=== PATIENT | male | born 1995 | race Caucasian/White ===

== ENCOUNTER 2023-01-19 18:29 | Emergency (ER) | payer OTHER, SELFPAY ==
--- NOTE | ~2023-01-19 | XR_ITS ---
EXAMINATION: XR CHEST CLINICAL INFORMATION: Lightheaded, dizziness. COMPARISON: None available. TECHNIQUE: 2 views of the chest were obtained. FINDINGS: No significant cardiomediastinal contour abnormality. No focal airspace opacity, pleural effusion or pneumothorax. No displaced rib fractures. The visualized upper abdomen is within normal limits. XR/XR chest 2V IMPRESSION: No acute cardiopulmonary findings.
[2023-01-19 18:44] VITALS: BP 164/50; PULSE 86; RESP 18; TEMP 36; O2SAT 98; BMI 26.9
--- NOTE | 2023-01-19 18:44 | ED.GENADULT ---
HPI - General Adult General Chief complaint: Recheck/Abnormal Lab/Rx <ASHLEY Urrutia - Last Filed: 01/19/23 18:45> Stated complaint: sent from urgent care/ dizzy, faint, hot <ASHLEY Urrutia - Last Filed: 01/19/23 18:45> Time Seen by Provider: 01/20/23 02:05 <ASHLEY Urrutia - Last Filed: 01/19/23 18:45> Source: patient <Rafael Ferraro MD - Last Filed: 01/20/23 03:04> Mode of arrival: ambulatory <Rafael Ferraro MD - Last Filed: 01/20/23 03:04> Limitations: no limitations <Rafael Ferraro MD - Last Filed: 01/20/23 03:04> History of Present Illness HPI narrative: Patient came with him with nonspecific dizziness not feeling good was outside in 92 decrease in hot humid seen in urgent care noted ? Abnormal T-wave EKG and sent patient HERE denies any chest palpitation patient otherwise has no cardiac issues in the past no syncope or palpitation <Rafael Ferraro MD - Last Filed: 01/20/23 03:04> Related Data Allergies/adverse reactions: Allergies Allergy/AdvReac Type Severity Reaction Status Date / Time Penicillins [PCN] Allergy Rash Verified 01/19/23 18:46 <ASHLEY Urrutia - Last Filed: 01/19/23 18:45> Review of Systems Review of Systems: Yes all other systems are reviewed and are negative <Rafael Ferraro MD - Last Filed: 01/20/23 03:04> [facility] Social History Social History: Social History Advance Directives: No Advance Directives Information Provided: No <ASHLEY Urrutia - Last Filed: 01/19/23 18:45> Physical Exam ED Vital Signs: Vital Signs - 24 hr 01/19/23 18:44 01/19/23 23:59 Temperature 96.8 F 98 F Pulse Rate 86 70 Respiratory Rate 18 20 Blood Pressure 164/50 H 138/69 Pulse Oximetry 98 98 Oxygen Delivery Method Room Air Room Air BMI result Body Mass Index 26.9 <ASHLEY Urrutia - Last Filed: 01/19/23 18:45> Vital Signs - 24 hr 01/19/23 18:44 01/19/23 23:59 Temperature 96.8 F 98 F Pulse Rate 86 70 Respiratory Rate 18 20 Blood Pressure 164/50 H 138/69 Pulse Oximetry 98 98 Oxygen Delivery Method Room Air Room Air BMI result Body Mass Index 26.9 <Rafael Ferraro MD - Last Filed: 01/20/23 03:04> Appearance: Alert. Oriented X3. No acute distress. Eyes: PERRLA, No Nystagmus ENT: Pharynx normal. Oral Mucosa moist Neck: Normal inspection. Neck supple. CVS: Normal heart rate and rhythm. Pulses normal. No murmur Respiratory: No respiratory distress. Equal air entry bilateral, no wheezing/rales/rhonchi Abdomen: Soft and nontender. Bowel sounds are present, no mass palpable, no CVA tenderness Skin: Skin warm and dry. Normal skin color. Normal skin turgor. Extremities: No lower extremity edema. No calf tenderness Neuro: Oriented X 3. No motor deficit. No sensory deficit.No cerebellar signs , cranial nerves II-XII intact <Rafael Ferraro MD - Last Filed: 01/20/23 03:04> Course Course Course Narrative: RME performed by Stephanie De Jesus PA-C. Patient is a 27 year old assigned male at presenting to the emergency department feeling lightheaded and overall warm. Patient states that he was seen at an urgent care and had a decreased blood glucose and possible abnormal EKG. Labs and swabs ordered. Patient placed back in the waiting room pending room availability and results. <ASHLEY Urrutia - Last Filed: 01/19/23 18:45> Medical Decision Making Medical Decision Making [facility] Narrative: Patient's symptoms likely from heat exhaustion vitals are stable workup negative discharge patient home <Rafael Ferraro MD - Last Filed: 01/20/23 03:04> Lab Data [facility] Lab Attestation statement: I reviewed the patient's lab results. <Rafael Ferraro MD - Last Filed: 01/20/23 03:04> Result Diagrams: 01/19/23 18:57 01/19/23 19:52 <ASHLEY Urrutia - Last Filed: 01/19/23 18:45> Labs: Lab Results 01/19/23 01/19/23 01/19/23 Range/Units 18:57 18:57 18:57 WBC 7.4 (4.8-10.8) X10*3/uL RBC 5.32 (4.60-5.80) X10*6/uL Hgb 15.3 (14.0-18.0) g/dl Hct 44.5 (42.0-52.0) % MCV 83.6 (80.0-98.0) fL MCH 28.8 (27.0-33.0) pg MCHC 34.4 (31.0-36.0) g/dl RDW 11.9 (11.0-16.0) % Plt Count 275 (160-400) X10*3/uL MPV 9.8 (9.4-12.4) fL Immature Gran % (Auto) 0.4 (0.0-0.4) % Neut % (Auto) 62.6 (45-73) % Lymph % (Auto) 25.4 (20-40) % [place] % (Auto) 6.9 (2-11) % Eos % (Auto) 4.3 H (0-4) % Baso % (Auto) 0.4 (0-2) % Lymph # (Auto) 1.9 (1.2-4.9) X10*3/uL [place] # (Auto) 0.5 (0.1-1.2) X10*3/uL Eos # (Auto) 0.3 (0.0-0.4) X10*3/uL Baso # (Auto) 0.0 (0.0-0.2) X10*3/uL Abs Immat Gran (auto) 0.03 (0.00-0.03) X10*3/uL Absolute Neuts (auto) 4.7 (2.0-8.3) x10*3/uL Absolute Nucleated RBC 0.000 (0.0-0.012) X10*3/uL Nucleated RBC % (auto) 0.0 (0.0-0.2) /100WBC Sodium (135-145) mmol/L Potassium (3.3-5.1) mmol/L Chloride (96-108) mmol/L Carbon Dioxide (22-29) mmol/L Anion Gap (12-20) BUN (9-16) mg/dL Creatinine (0.5-1.4) mg/dL Estim Creat Clear Calc Estimated GFR Random Glucose (60-115) mg/dL Calcium (8.4-10.2) mg/dL Magnesium (1.6-2.6) mg/dL Total Bilirubin (0.0-1.0) mg/dL AST (5-37) U/L ALT (0-40) U/L Alkaline Phosphatase (39-117) U/L Troponin I High Sens < 2.7 (<3.5-35.0) ng/L Total Protein (6.5-8.0) g/dL Albumin (3.5-5.0) g/dL COVID-19 (KETAN) Negative (Negative) COVID-19 Clin Com See Note 01/19/23 Range/Units 19:52 WBC (4.8-10.8) X10*3/uL RBC (4.60-5.80) X10*6/uL Hgb (14.0-18.0) g/dl Hct (42.0-52.0) % MCV (80.0-98.0) fL MCH (27.0-33.0) pg MCHC (31.0-36.0) g/dl RDW (11.0-16.0) % Plt Count (160-400) X10*3/uL MPV (9.4-12.4) fL Immature Gran % (Auto) (0.0-0.4) % Neut % (Auto) (45-73) % Lymph % (Auto) (20-40) % [place] % (Auto) (2-11) % Eos % (Auto) (0-4) % Baso % (Auto) (0-2) % Lymph # (Auto) (1.2-4.9) X10*3/uL [place] # (Auto) (0.1-1.2) X10*3/uL Eos # (Auto) (0.0-0.4) X10*3/uL Baso # (Auto) (0.0-0.2) X10*3/uL Abs Immat Gran (auto) (0.00-0.03) X10*3/uL Absolute Neuts (auto) (2.0-8.3) x10*3/uL Absolute Nucleated RBC (0.0-0.012) X10*3/uL Nucleated RBC % (auto) (0.0-0.2) /100WBC Sodium 142 (135-145) mmol/L Potassium 4.0 (3.3-5.1) mmol/L Chloride 106 (96-108) mmol/L Carbon Dioxide 27 (22-29) mmol/L Anion Gap 13 (12-20) BUN 12 (9-16) mg/dL Creatinine 0.88 (0.5-1.4) mg/dL Estim Creat Clear Calc 118.9 Estimated GFR > 60 Random Glucose 93 (60-115) mg/dL Calcium 9.6 (8.4-10.2) mg/dL Magnesium 2.2 (1.6-2.6) mg/dL Total Bilirubin 0.3 (0.0-1.0) mg/dL AST 18 (5-37) U/L ALT 21 (0-40) U/L Alkaline Phosphatase 100 (39-117) U/L Troponin I High Sens (<3.5-35.0) ng/L Total Protein 7.8 (6.5-8.0) g/dL Albumin 4.7 (3.5-5.0) g/dL COVID-19 (KETAN) (Negative) COVID-19 Clin Com <ASHLEY Urrutia - Last Filed: 01/19/23 18:45> Lab Results 01/19/23 01/19/23 01/19/23 Range/Units 18:57 18:57 18:57 WBC 7.4 (4.8-10.8) X10*3/uL RBC 5.32 (4.60-5.80) X10*6/uL Hgb 15.3 (14.0-18.0) g/dl Hct 44.5 (42.0-52.0) % MCV 83.6 (80.0-98.0) fL MCH 28.8 (27.0-33.0) pg MCHC 34.4 (31.0-36.0) g/dl RDW 11.9 (11.0-16.0) % Plt Count 275 (160-400) X10*3/uL MPV 9.8 (9.4-12.4) fL Immature Gran % (Auto) 0.4 (0.0-0.4) % Neut % (Auto) 62.6 (45-73) % Lymph % (Auto) 25.4 (20-40) % [place] % (Auto) 6.9 (2-11) % Eos % (Auto) 4.3 H (0-4) % Baso % (Auto) 0.4 (0-2) % Lymph # (Auto) 1.9 (1.2-4.9) X10*3/uL [place] # (Auto) 0.5 (0.1-1.2) X10*3/uL Eos # (Auto) 0.3 (0.0-0.4) X10*3/uL Baso # (Auto) 0.0 (0.0-0.2) X10*3/uL Abs Immat Gran (auto) 0.03 (0.00-0.03) X10*3/uL Absolute Neuts (auto) 4.7 (2.0-8.3) x10*3/uL Absolute Nucleated RBC 0.000 (0.0-0.012) X10*3/uL Nucleated RBC % (auto) 0.0 (0.0-0.2) /100WBC Sodium (135-145) mmol/L Potassium (3.3-5.1) mmol/L Chloride (96-108) mmol/L Carbon Dioxide (22-29) mmol/L Anion Gap (12-20) BUN (9-16) mg/dL Creatinine (0.5-1.4) mg/dL Estim Creat Clear Calc Estimated GFR Random Glucose (60-115) mg/dL Calcium (8.4-10.2) mg/dL Magnesium (1.6-2.6) mg/dL Total Bilirubin (0.0-1.0) mg/dL AST (5-37) U/L ALT (0-40) U/L Alkaline Phosphatase (39-117) U/L Troponin I High Sens < 2.7 (<3.5-35.0) ng/L Total Protein (6.5-8.0) g/dL Albumin (3.5-5.0) g/dL COVID-19 (KETAN) Negative (Negative) COVID-19 Clin Com See Note 01/19/23 Range/Units 19:52 WBC (4.8-10.8) X10*3/uL RBC (4.60-5.80) X10*6/uL Hgb (14.0-18.0) g/dl Hct (42.0-52.0) % MCV (80.0-98.0) fL MCH (27.0-33.0) pg MCHC (31.0-36.0) g/dl RDW (11.0-16.0) % Plt Count (160-400) X10*3/uL MPV (9.4-12.4) fL Immature Gran % (Auto) (0.0-0.4) % Neut % (Auto) (45-73) % Lymph % (Auto) (20-40) % [place] % (Auto) (2-11) % Eos % (Auto) (0-4) % Baso % (Auto) (0-2) % Lymph # (Auto) (1.2-4.9) X10*3/uL [place] # (Auto) (0.1-1.2) X10*3/uL Eos # (Auto) (0.0-0.4) X10*3/uL Baso # (Auto) (0.0-0.2) X10*3/uL Abs Immat Gran (auto) (0.00-0.03) X10*3/uL Absolute Neuts (auto) (2.0-8.3) x10*3/uL Absolute Nucleated RBC (0.0-0.012) X10*3/uL Nucleated RBC % (auto) (0.0-0.2) /100WBC Sodium 142 (135-145) mmol/L Potassium 4.0 (3.3-5.1) mmol/L Chloride 106 (96-108) mmol/L Carbon Dioxide 27 (22-29) mmol/L Anion Gap 13 (12-20) BUN 12 (9-16) mg/dL Creatinine 0.88 (0.5-1.4) mg/dL Estim Creat Clear Calc 118.9 Estimated GFR > 60 Random Glucose 93 (60-115) mg/dL Calcium 9.6 (8.4-10.2) mg/dL Magnesium 2.2 (1.6-2.6) mg/dL Total Bilirubin 0.3 (0.0-1.0) mg/dL AST 18 (5-37) U/L ALT 21 (0-40) U/L Alkaline Phosphatase 100 (39-117) U/L Troponin I High Sens (<3.5-35.0) ng/L Total Protein 7.8 (6.5-8.0) g/dL Albumin 4.7 (3.5-5.0) g/dL COVID-19 (KETAN) (Negative) COVID-19 Clin Com <Rafael Ferraro MD - Last Filed: 01/20/23 03:04> Independent Interpretation I performed an independent interpretation of an: EKG <Rafael Ferraro MD - Last Filed: 01/20/23 03:04> Interpretation: Normal sinus rhythm heart rate 73 beats per minute normal interval normal axis no acute ST-T changes no acute ischemia <Rafael Ferraro MD - Last Filed: 01/20/23 03:04> Discharge Plan Discharge Clinical Impression: Heat exhaustion <ASHLEY Urrutia - Last Filed: 01/19/23 18:45> Patient Disposition: Home, Self-Care <ASHLEY Urrutia - Last Filed: 01/19/23 18:45> Instructions: Heat Exhaustion (ED), Dizziness (ED) <ASHLEY Urrutia - Last Filed: 01/19/23 18:45> Additional Instructions: Stay hydrated and stay in shaded area Follow your PCP if any concerns <ASHLEY Urrutia - Last Filed: 01/19/23 18:45>
--- NOTE | 2023-01-19 18:45 | ECG_ITS ---
Test Reason : DIZZINESS Blood Pressure : / mmHG Vent. Rate : 073 BPM Atrial Rate : 073 BPM P-R Int : 124 ms QRS Dur : 090 ms QT Int : 358 ms P-R-T Axes : 025 051 135 degrees QTc Int : 394 ms Normal sinus rhythm with sinus arrhythmia Nonspecific T wave abnormality Abnormal ECG No previous ECGs available Referred By: Stephanie De Jesus Electronically Signed By:BOB MANN MD
[2023-01-19 19:03] LABS: Basophils Percent Auto 0.4 % (0-2); Eosinophils Absolute Auto 0.3 X10*3/uL (0.0-0.4); Eosinophils Percent Auto 4.3 % (0-4); Hematocrit 44.5 % (42.0-52.0); Hemoglobin 15.3 g/dl (14.0-18.0); Imm Gran Abs Auto 0.03 X10*3/uL (0.00-0.03); Imm Gran Pct Auto 0.4 % (0.0-0.4); Lymphocytes Absolute Auto 1.9 X10*3/uL (1.2-4.9); Lymphocytes Percent Auto 25.4 % (20-40); MANUAL DIFF FLAG NO; Mean Corpuscular HGB Conc 34.4 g/dl (31.0-36.0); Mean Corpuscular Hemoglobin 28.8 pg (27.0-33.0); Mean Corpuscular Volume 83.6 fL (80.0-98.0); Mean Platelet Volume 9.8 fL (9.4-12.4); Monocytes Absolute Auto 0.5 X10*3/uL (0.1-1.2); Monocytes Percent Auto 6.9 % (2-11); Neutrophils Absolute Auto 4.7 x10*3/uL (2.0-8.3); Neutrophils Percent Auto 62.6 % (45-73); Platelet Count 275 X10*3/uL (160-400); Red Blood Count 5.32 X10*6/uL (4.60-5.80); Red Cell Distribution Width 11.9 % (11.0-16.0); White Blood Count 7.4 X10*3/uL (4.8-10.8)
[2023-01-19 19:22] LABS: COVID-19 Test Negative (Negative); IDNOW Serial# BCCEAD1C
[2023-01-19 19:38] LABS: Troponin-I High Sensitivity < 2.7 ng/L (<3.5-35.0)
[2023-01-19 20:12] LABS: Anion Gap 13 (12-20)
[2023-01-19 20:14] LABS: Alanine Aminotransferase 21 U/L (0-40); Albumin Level 4.7 g/dL (3.5-5.0); Alkaline Phosphatase 100 U/L (39-117); Aspartate Amino Transferase 18 U/L (5-37); Bilirubin Total 0.3 mg/dL (0.0-1.0); Blood Urea Nitrogen 12 mg/dL (9-16); Calcium 9.6 mg/dL (8.4-10.2); Carbon Dioxide 27 mmol/L (22-29); Chloride 106 mmol/L (96-108); Creatinine Clr Calc Pharmacy 118.9; Estimated Glomerular Filt Rate > 60; Glucose Random 93 mg/dL (60-115); Magnesium 2.2 mg/dL (1.6-2.6); Sodium 142 mmol/L (135-145); Total Protein 7.8 g/dL (6.5-8.0)
--- NOTE | 2023-01-19 23:55 | PC.NURSE ---
Pt presents today for evaluation after feeling lightheaded and dizzy earlier today, episode lasted approx 3 hours starting at 1100 hours. Pt report head congestion, productive cough with yellowish/green sputum with body aches for the past 7 days. Was seen at today and referred here for further eval, ? abnormal lung sounds and ? abnormal EKG. Denies any fever, recent trauma, current sinus pressure, and any contact with sick people.
[2023-01-19 23:59] VITALS: BP 138/69; PULSE 70; RESP 20; TEMP 36.6; O2SAT 98
== END 2023-01-20 03:16 | disposition home or self-care (01) ==
PROVIDERS: Physician Assistant Medical; Emergency Provider Internal Medicine
DX: R42 Dizziness and giddiness (principal); T67.5XXA Heat exhaustion, unspecified, initial encounter; X30.XXXA Exposure to excessive natural heat, initial encounter; Y93.9 Activity, unspecified; Y92.9 Unspecified place or not applicable; Y99.9 Unspecified external cause status; Z20.822 Contact with and (suspected) exposure to COVID-19
CPT/HCPCS: 71046; 80053; 83735; 84484; 85025; 87635; 93005; 99283; 99284

== ENCOUNTER 2024-11-14 16:00 | Outpatient (AMB) | payer OTHER, SELFPAY ==
--- NOTE | 2024-11-14 16:02 | A.OFFPC_ITS ---
Vital Signs 11/14/24 16:03 Height 5 ft 7 in Weight 176 lb 4 oz BMI 27.6 BP 130/82 Blood Pressure Location Lt brachial Position Sitting Pulse 88 Pulse Source Pulse Oximeter Pulse Oximetry (%) 97 Oxygen Delivery Method Room Air Intake Visit Reasons: Establish Care New Account Interviewer Required: No Accompanied by: Self / Same As Patient Allergies Penicillins [PCN] Allergy (Verified 11/14/24 16:28) Rash Medication List - Last Reconciled 11/17/24 by KRISTIE Faith desvenlafaxine ER 50 mg PO DAILY Tobacco use date assessed: 11/14/24 Dental Screening Dental Screen Date: 11/14/24 Did you have a dental visit in the last 12 months?: No Did you have a dental problem in the last 6 months where you did not have access to dental care?: No Was dental information given to patient?: No HPI Establish Care HPI Details The patient is a 29-year-old male presenting to establish care Previous PCP:none consistent Last visit: 2015 Last PE: 2022 -had one for a job OBGYN:n/a Past medical history: anxiety with panic attacks- heart start racing and geting hot, left patella surgery (pins in the knee) 12-13 years, rustling match in high, dislocated his patella Medications:Desvenlavaxine ER 50 mg daily Family HX:maternal htn, Problem: one month hx of left groin burning/pressure, he is concern for inguinal hernia, reports sometimes he feels like it is on the right side as well Denies any injuries. The patient wanted to know if excessive masturbation could play a role in his discomfort One hx week lower abdominal pain, feels like pressure and suprapubic region. reports that the pressure is there everyday, reports that sometime he feels like he has psyches himself out, reports that he thinks some of it is due to his anxiety. He denies dysuria and penile discharge [facility] Medical History Elbow fracture, left Anxiety Panic attacks Patellar dislocation Family History Other Hypertension Social History Housing: Apartment Patient Tobacco Use Status: Never used Tobacco e-Cigarette/Vaping Use: Currently Using service: No Current occupational status: employed Current occupational exposures/hazards: No Cognitive needs: No Hearing needs: No Vision needs: No Questionnaire PHQ-9 Over the last 2 weeks, how often have you been bothered by any of the following problems? 1. Little interest or pleasure in doing things: not at all 2. Feeling down, depressed, or hopeless: not at all 3. Trouble falling or staying asleep, or sleeping too much: several days 4. Feeling tired or having little energy: several days 5. Poor appetite or overeating: not at all 6. Feeling bad about yourself - or that you are a failure or have let yourself or your family down: not at all 7. Trouble concentrating on things, such as reading the newspaper or watching television: not at all 8. Moving or speaking so slowly that other people could have noticed. Or the opposite - being so fidgety or restless that you have been moving around a lot more than usual: not at all 9. Thoughts that you would be better off or of hurting yourself in some way: not at all Total score: 2 Depression Screening Interpretation: Negative Depression Screening Done: Yes [id number] - PHQ-9 Billing: Yes Source: Developed by Drs. Álvaro Sanchez, Rachael Beltre, Danilo Anderson and colleagues, with an educational sylvia from [employer]. Thrive Questionnaire Date Thrive assessed: 11/14/24 I am a: Patient What is your living situation today?: I have a steady place to live Within the past 12 months, did the food you bought not last and you didn't have the money to get more?: Never true Within the past 12 months, did you worry whether your food would run out before you got money to buy more?: Never true Do you have trouble paying for medicines?: No Do you have trouble getting transportation to medical appointments?: No Do you have trouble paying your heating and electricity bill?: Yes Do you have trouble taking care of your child, family member or friend?: No Do you have trouble with day-to-day activities such as bathing, preparing meals, shopping, managing finances, etc.?: No Are you currently unemployed and looking for a job?: No Are you interested in more education?: No Please select the resources that you would like help with: None Currently or been in a relationship where the following occur: No concerns reported THRIVE Score: 1 AUDIT C Alcohol Use Questionnaire (AUDIT-C) 1. How often do you have a drink containing alcohol?: 2-4 times a month 2. How many drinks containing alcohol do you have on a typical day when you are drinking?: 3 or 4 3. How often do you have six or more drinks on one occasion?: Less than monthly Total Score: 4 VILMA-7 AMB Questionnaire VILMA-7 Date VILMA - 7 assessed: 11/14/24 Feeling nervous, anxious, or on edge: 1 = Several days Not being able to stop or control worryin = Not at all Worrying too much about different things: 0 = Not at all Trouble relaxin = Not at all Being so restless that it is hard to sit still: 0 = Not at all Becoming easily annoyed or irritable: 0 = Not at all Feeling afraid as if something awful might happen: 1 = Several days Total VILMA-7 score (0-4 normal; 5-9 mild; 10-14 moderate; 15-21 severe): 2 Source: Developed by Drs. Álvaro Sanchez, Rachael Beltre, Danilo Anderson and colleagues, with an educational sylvia from [employer]. VILMA-7 Assessment Billing VILMA-7 Assessment Tool: VILMA-7 Assessment 13345 Review of Systems Const Details: Denies chills, Denies fatigue, Denies fever(s), Denies headache(s) and Denies weakness HEENT Denies change in vision, Denies dizziness, Denies headache(s), Denies hearing loss, Denies nasal congestion, Denies sinus pain, Denies sinus pressure and Denies sore throat Card Denies chest pain, Denies lightheadedness, Denies dyspnea and Denies other (palpitations) Resp Denies cough, Denies dyspnea and Denies wheezing GI Denies abdominal pain, Denies melena, Denies hematochezia, Denies change in bowel habits, Denies dyspepsia and Denies nausea Other: Left groin burning/pressure (intermittently feels like his in the right groin as well), suprapubic pressure constantly Denies hematuria and Denies dysuria Musc Denies abnormal gait, Denies myalgias, Denies arthralgias, Denies numbness and Denies tingling Skin/Breast Denies rash, Denies unusual bruising and Denies wounds Neuro Denies abnormal gait, Denies dizziness, Denies headache(s), Denies memory loss, Denies numbness, Denies Sensory deficit (Neuro), Denies tingling and Denies weakness Psych Reports anxiety, Denies depression and Denies memory loss Endo Denies cold intolerance, Denies fatigue, Denies heat intolerance, Denies polydipsia and Denies polyuria Rod/Lymph Denies easy bleeding and Denies easy bruising Aller/Immun Denies wheezing Physical exam (Primary Care) Vital Signs: Last Vital Signs Pulse 88 11/14/24 16:03 BP 130/82 11/14/24 16:03 Pulse Ox 97 11/14/24 16:03 Oxygen Delivery Method Room Air 11/14/24 16:03 BMI result Body Mass Index 27.6 Tobacco/Smoking Status: Tobacco use Status Tobacco use date assessed 11/14/24 11/14/24 16:04 Patient Tobacco Use Status Never used Tobacco 11/14/24 16:25 e-Cigarette/Vaping Use Currently Using 11/14/24 16:25 PHQ-9: PHQ-9 Score PHQ-9: Total score 2 11/17/24 14:00 Depression Screening Interpretation: Negative Thrive Assessment: Date of Thrive Assessment Date Thrive assessed 11/14/24 11/14/24 16:14 Currently or been in a relationship where the following occur: No concerns reported Const Other: General: no acute distress, well developed, alert and awake Nutritional Appearance: well nourished Orientation/consciousness: patient oriented x3 HENMT Head: Yes normocephalic and Yes atraumatic Ears: hearing grossly normal bilaterally and TM's normal bilaterally General nose exam: Normal external nose present and Normal nares present Eyes Pupils: Equal, round and reactive pupils present and Pupil accommodation reflex normal EOM: EOMs intact bilaterally Neck Neck: Yes normal visual inspection, Yes no lymphadenopathy Thyroid: Thyroid normal Chest Chest palpation & inspection: normal inspection of the chest Resp Effort & Inspection: normal respiratory effort Auscultation: clear to auscultation bilaterally Cardio Rate: regular rate Rhythm: regular rhythm Heart sounds: S1 normal heart sound present, S2 normal heart sound present, no gallops, no murmurs and no rubs GI Palpation (GI): No Abdominal aortic bruit present, Soft to palpation, nontender, No hepatosplenomegaly present and No Rebound tenderness present Auscultation: normal bowel sounds General: Yes no CVA tenderness Back/Spine/Pelvis Back: no CVA tenderness Cervical Spine: cervical ROM normal and No Cervical spine tenderness Thoracic/Lumbar Spine: thoraco-lumbar ROM normal, No pain with thoraco-lumbar ROM, No thoracic spinal tenderness and No lumbar spinal tenderness Skin General: warm and dry. Normal skin color. Normal skin turgor Lesions: no lesions Nails: normal Neuro General: patient oriented x3, gait normal a Cranial nerves: Yes Equal, round and reactive pupils present Cognition (Neuro): normal cognition Gait exam (Neuro): Normal gait present Extrem General: Yes normal to inspection, No edema and No calf tenderness Psych Appearance: grossly normal Affect: normal affect Attitude: cooperative Thought process: Normal thought process present Coding Level of Care Code New Pt Level 4 (92099) Diagnoses Anxiety F41.9 Panic attacks F41.0 Screening for STD (sexually transmitted disease) Z11.3 Suprapubic pressure R10.2 Left inguinal pain R10.32 Laterality: left Additional Codes VILMA-7 Assessment Billing - VILMA-7 Assessment Tool: VILMA-7 Assessment 98233 ([id number]) PHQ-9 - 43954 - PHQ-9 Billing: Yes ([id number]) Time Spent (min) 34 Assessment & Plan Assessment & Plan (1) Anxiety: Code(s): F41.9 - Anxiety disorder, unspecified Category: Medical Plan: Continue descenlafaxine ER 50 mg daily denies si/hi (2) Panic attacks: Code(s): F41.0 - Panic disorder [episodic paroxysmal anxiety] Category: Medical Plan: same as above (3) Screening for STD (sexually transmitted disease): Code(s): Z11.3 - Encounter for screening for infections with a predominantly sexual mode of transmission Category: Medical Plan: STD screenigs ordered (4) Suprapubic pressure: Code(s): R10.2 - Pelvic and perineal pain Category: Medical Plan: STD screenig, urinalysis, and a pelvic ultrasound ordered (5) Groin pain: Code(s): R10.30 - Lower abdominal pain, unspecified Category: Medical Qualifiers: Laterality: left Qualified Code(s): R10.32 - Left lower quadrant pain Plan: a pelvic ultrasound ordered Plan The patient to return in 2 weeks for a complete exam Orders: Orders Complete Blood Count Auto Diff 11/14/24 Z00.00 - Encounter for general adult medical examination without abnormal findings Lipid Panel 11/14/24 Z. - Encounter for general adult medical examination without abnormal findings Vitamin D 25-OH Total 11/14/24 Z. - Encounter for general adult medical examination without abnormal findings TSH reflex Free T4 11/14/24 Z00.00 - Encounter for general adult medical examination without abnormal findings UA CC w/rflx Micro + Cult 11/14/24 Z. - Encounter for general adult medical examination without abnormal findings CT NG by PCR 11/14/24 Z11.3 - Encounter for screening for infections with a predominantly sexual mode of transmission HIV Ab/Ag 11/14/24 Z11.3 - Encounter for screening for infections with a predominantly sexual mode of transmission Comprehensive [place]. Panel Fast 11/14/24 Z00.00 - Encounter for general adult medical examination without abnormal findings US pelvic complete 11/14/24 R10.2 - Pelvic and perineal pain, R10.30 - Lower abdominal pain, unspecified Syphilis Screen 11/14/24 Z11.3 - Encounter for screening for infections with a predominantly sexual mode of transmission
[2024-11-14 16:03] VITALS: BP 130/82; PULSE 88; O2SAT 97; BMI 27.6
--- OUTSIDE RECORDS SUMMARY | 2024-11-14 16:03 | XMS_ITS ---
Author Organization [facility] Address [address] [place] [address] [place], [place] [id number] Care Team Providers Care Review Manager Name Role Phone SAMANTHA TIDWELL [facility] [phone] Allergies Allergen (clinical drug ingredient) Drug/Non Drug Allergy documented on EMR Reaction Allergy Type Onset Date Status Penicillin Unknown Drug Allergy Active Results Component Value Reference Range Notes T pallidum Screening Morley -[id number] Reviewed date:09/30/2024 12:36:51 PM Interpretation:Negative Performing Lab:[facility] [place], [address], [address], [facility], Phone - [phone], [facility] Notes/Report: T pallidum Antibodies Non Reactive Non Reactive HIV Ab/p24 Ag with Reflex-[id number] Reviewed date:10/03/2024 04:39:48 PM Interpretation:Negative Performing Lab:[facility], [address], [address], [facility], Phone - [phone], Director - [facility] Notes/Report: HIV Ab/p24 Ag Screen Non Reactive Non Reactive HIV-1/HIV-2 antibodies and HIV-1 p24 antigen were NOT detected. There is no laboratory evidence of HIV infection. HIV Negative Chlamydia/GC Amplification-[id number] Reviewed date:09/29/2024 08:21:49 PM Interpretation:Negative Performing Lab:[facility], [address], [address], [facility], Phone - [phone], Director - [facility] Notes/Report: Chlamydia trachomatis, KETAN Negative Negative Neisseria gonorrhoeae, KETAN Negative Negative Ct/GC KETAN, Rectal-[id number] Reviewed date:09/30/2024 12:36:40 PM Interpretation:Negative Performing Lab:[facility], [address], [place], Phone - [phone], Director - [facility] Notes/Report: C. trachomatis, KETAN, Rectal Negative Negative N. gonorrhoeae, KETAN, Rectal Negative Negative Ct/GC KETAN, Pharyngeal-[id number] Reviewed date:09/30/2024 12:36:31 PM Interpretation:Negative Performing Lab:[facility], [address], [address], [place], Phone - [phone], Director - [facility] Notes/Report: C. trachomatis, KETAN, Pharyn Negative Negative N. gonorrhoeae, KETAN, Pharyn Negative Negative REASON FOR VISIT STI Screen Medications Medication SIG (Take, Route, Frequency, Duration) Notes Start Date End Date Status Doxycycline Monohydrate 100 MG 2 tablet Orally Taken as soon as possible after sex, ideally within 24 hours and no later than 72 hours after sex. No more than 200 mg should be taken within a 24-hour period. 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 Encounters Encounter Location Date Provider Diagnosis [facility] [address] [place] [address] [place], [place] [id number] 09/27/2024 SAMANTHA TIDWELL Encounter for screen ing for infections with a predominantly sexual mode of transmission Z11.3 ; Counseling, unspecified Z71.9 ; Other problems related to lifestyle Z72.89 ; HIV Screening Z11.4 and Other specified disorders of penis N48.89 Assessments Encounter Date Diagnosis (ICD Code) Assessment Notes Treatment Notes Treatment Clinical Notes Section Notes 09/27/2024 Encounter for screening for infections with a predominantly sexual mode of transmission (ICD-10 - Z11.3) Discussed STI risks, screenings that are available through [facility] and safe sex. Clt aware of lab processing times and how to view results on portal and how positive results will be communicated Spent 25 minutes doing the following: Chart Prep Obtaining/r eviewing history Counseling/ Coordinatio n of Care Documenting the visit Educating the patient Ordering medication/ test/proced ures Established Patient: 13888 20 Minutes 09/27/2024 Counseling, unspecified (ICD-10 - Z71.9) Clt not in need of any refills on Truvada. Continue to use on-demand. Recommend fu every 3 months Spent 25 minutes doing the following: Chart Prep Obtaining/r eviewing history Counseling/ Coordinatio n of Care Documenting the visit Educating the patient Ordering medication/ test/proced ures Established Patient: 82068 20 Minutes 09/27/2024 Other problems related to lifestyle (ICD-10 - Z72.89) Spent 25 minutes doing the following: Chart Prep Obtaining/r eviewing history Counseling/ Coordinatio n of Care Documenting the visit Educating the patient Ordering medication/ test/proced ures Established Patient: 22850 20 Minutes 09/27/2024 HIV Screening (ICD-10 - Z11.4) Spent 25 minutes doing the following: Chart Prep Obtaining/r eviewing history Counseling/ Coordinatio n of Care Documenting the visit Educating the patient Ordering medication/ test/proced ures Established Patient: 67136 20 Minutes 09/27/2024 Other specified disorders of penis (ICD-10 - N48.89) Reviewed clt's concerns for penile symptoms. Will rule out STI's. Could consider Lotrimin OTC tx to see if it relieves symptoms but description doesn't sound typical for balanitis. Suggested PCP and/or Urology follow-up for concerns if testing neg. Do recommend PCP for pelvic pain after a sports injury Spent 25 minutes doing the following: Chart Prep Obtaining/r eviewing history Counseling/ Coordinatio n of Care Documenting the visit Educating the patient Ordering medication/ test/proced ures Established Patient: 81004 20 Minutes Plan Of Treatment Treatment Notes Assessment Notes Encounter for screening for infections with a predominantly sexual mode of transmission Discussed STI risks, screenings that are available through [facility] and safe sex. Clt aware of lab processing times and how to view results on portal and how positive results will be communicated Counseling, unspecified Clt not in need of any refills on Truvada. Continue to use on-demand. Recommend fu every 3 months Other specified disorders of penis Reviewed clt's concerns for penile symptoms. Will rule out STI's. Could consider Lotrimin OTC tx to see if it relieves symptoms but description doesn't sound typical for balanitis. Suggested PCP and/or Urology follow-up for concerns if testing neg. Do recommend PCP for pelvic pain after a sports injury Next Appt Details Follow Up: 3 Months, Reason: PrEP fu Progress Notes * Van WILLISDOB:[birth year] (29 yo M)Acc No.[id number]:09/27/2024 Patient:?Van WILLIS Provider:?SAMANTHA TIDWELL :1995???Age:29 Y???Sex:Male Paulo e:09/27/2024 Address:[address] [place], [place] [id number] Subjective: * Chief Complaints: * ???STI Screen * HPI: ???Visit Narrative:? Today's visit conducted over Rhinogram. Clt verbalized being in a safe space?for today's visit. All medical questions and exam questions self reported by the Clt ?Clt reports pinching sensation that comes/goes thru out the day for past few weeks. No discharge, redness, rash, sores, no painful urination. Has general pelvic/groin discomfort ever since a sports injury a few months ago. Did have some eval by urgent care and told like strain/pulled muscle of some sort. No other fu Reports prior hx prior to becoming sexual active of stinging sensation at times with ejaculation. Will shower after to help relieve symptoms Is in need of PrEP fu. Uses PrEP on-demand and takes as needed. Cr due 03/2025, Hep B NI Not in need of any refills at this time. ?Reason for the visit:?testing?.?Current form of control:?condoms most of the time/prep?.?Presenting Symptoms:?ocasonally feels like a piching feeling on the head of the penis? and soarness in the groin area for about 3 weeks?.?Last date of UPI:?09/20/24.?Patient Location?In [place].?Other Notes for the Clinician:?clt here today for testing thinks its related to an injury he recently had but just wants to make sure?.? * ROS:?General/Constitutional:?Comments?See HPI for details.? * Medical History:? * Surgical History:?Denies Pas t Surgical History * Hospitalization/Major Diagno stic Procedure:?Denies Past Hospitalization * Family History:?Non-Contribu tory.? * Social History:?Food Access:?Food Access?The Client's current access to food is?Secure Food Access ???Housing:?Housing?The client's current living situation is:?stable housing ???Reproductive Life Plan:?Reproductive Life Plan?Do you want to have children??Not sure ???Sexual History:?Sexual History?Sexual History Reviewed:?Partners, Practices, Protection/Past STIs, Prevention of ?Currently sexually active??Yes ?Sexually active with:?Men ?Number of male partners?1 ?Your sexual activities include:?anal intercourse, oral intercourse receptive ?Reviewed types of EC??No ?Do you use condoms??Yes ?Condoms are used:?most of the time ?Date of last unprotected intercourse:?09/20/2024 ?Number of partners in past 3 months:?4 ?Number of partners in past year:?8 ?What is the client's primary method to prevent at the end of their visit??Condoms - Male ?Does your partner(s) currently have any STIs??No ???HIV Risk Assessment:?Additional Questions?Is an HIV Risk Assessment being conducted??Yes ?Have you been tested for HIV before??Yes ?Did you have a blood transfusion prior to 1985??No ?Do you have an unlicensed body piercing or tattoo??Yes ???Relationships:?Relationships?Has the client experienced any of the following:?Client has never experienced harmful relationships ???Human Trafficking:?Human Trafficking?Experienced:?No ???Tobacco Use:?Tobacco Use?Do you/have you used tobacco??No ?Tobacco Smoking Status?Never smoker ???Drugs/Alcohol:?Drug/Alcohol Use?Do you or have you used drugs??Yes, currently ?By what route are you taking drugs? Please check all that apply:?Smoking ?Which drug(s) do you smoke??Marijuana ?Do you or have you used alcohol??Yes, currently ???Counseling Provided:?Counseling Provided?Please indicate the length of time, in minutes, that counseling was provided.?7 ?Counseling Was Provided By:?sonia * Medications:?TakingDesvenlaf axine Succinate Melatonin Emtricitabine-Tenofovir DF 200-300 MG Tablet TAKE TWO TABLETS 2-24 HOURS BEFORE SEX, THEN ONE PILL 24 HOURS AFTER THE FIRST DOSE, AND ONE PILL 48 HOURS AFTER THE FIRST DOSE Orally Once a day Taking Desvenlafaxine Succinate Taking Melatonin Taking Emtricitabine-Tenofovir DF 200-300 MG Tablet TAKE TWO TABLETS 2-24 HOURS BEFORE SEX, THEN ONE PILL 24 HOURS AFTER THE FIRST DOSE, AND ONE PILL 48 HOURS AFTER THE FIRST DOSE Orally Once a day Not-Taking/PRNDoxycycline Monohydrate 100 MG Tablet 2 tablet Orally Taken as soon as possible after sex, ideally within 24 hours and no later than 72 hours after sex. No more than 200 mg should be taken within a 24-hour period. Medication List reviewed and reconciled with the patientNot-Taking/PRN Doxycycline Monohydrate 100 MG Tablet 2 tablet Orally Taken as soon as possible after sex, ideally within 24 hours and no later than 72 hours after sex. No more than 200 mg should be taken within a 24- hour period. Medication List reviewed and reconciled with the patient * Allergies:?Penicillinno[Bola rgies Verified] Objective: * Vitals:? * Examination: ???General Examination: ?GENERAL APPEARANCE:?pleasant, in no acute distress.?PSYCH:?alert, oriented.? Assessment: * Assessment: 1.?Encounter for screening f or infections with a predominantly sexual mode of transmission - Z11.3 (Primary)???2.?Counseling, unspecified - Z71.9???3.?Other problems related to lifestyle - Z72.89???4.?HIV Screening - Z11.4?? 5.?Other specified disorders of penis - N48.89??? Spent 25 minutes doing the f ollowing: Chart Prep Obtaining/reviewing history Counseling/Coordination of Care Documenting the visit Educating the patient Ordering medication/test/procedures Established Patient: 37612 20 Minutes Plan: * Treatment: ? Value Reference Range ?T pallidum Antibodies Non Reactive N on Reactive - * This lab was reviewed by EFRAÍN WAITE on 09/30/2024 at 12:36 PM EST ?LAB: Chlamydia/GC Amplification-[id number] (Collection Date & Time - 09/27/2024 11:55 AM)* ? Value Reference Range ?Chlamydia trachomatis, KETAN Negative Negative - * ?Neisseria gonorrhoeae, KETAN Negative Negative - * SAMANTHA TIDWELL 09/29/2024 08:20: 37 PM EST > your urine screening is negative for gonorrhea and chlamydia. I recommend you have follow up with your PCP as discussed during your visit. Please call with questionsThis lab was reviewed by SAMANTHA TIDWELL on 09/29/2024 at 20:21 PM EST ?LAB: Ct/GC KETAN, Rectal-[id number] (Collection Date & Time - 09/27/2024 11:55 AM)* ? Value Reference Range ?C. trachomatis, KETAN, Rectal Negative Negative - * ?N. gonorrhoeae, KETAN, Rectal Negative Negative - * This lab was reviewed by EFRAÍN WAITE on 09/30/2024 at 12:36 PM EST ?LAB: Ct/GC KETAN, Pharyngeal-[id number] (Collection Date & Time - 09/27/2024 11:55 AM)* ? Value Reference Range ?C. trachomatis, KETAN, Pharyn Negative Negative - * ?N. gonorrhoeae, KETAN, Pharyn Negative Negative - * This lab was reviewed by EFRAÍN WAITE on 09/30/2024 at 12:36 PM EST Notes: Discussed STI risks, screenings that are available through [facility] and safe sex. Clt aware of lab processing times and how to view results on portal and how positive results will be communicated ??2.?Counseling, unspecified? Notes: Clt not in need of any refills on Truvada. Continue to use on-demand. Recommend fu every 3 months??3.?HIV Screening?LAB: HIV Ab/p24 Ag with Reflex-[id number] (Collection Date & Time - 09/27/2024 11:55 AM)* ? Value Reference Range ?HIV Ab/p24 Ag Screen Non Reactive No n Reactive - * This lab was reviewed by EFRAÍN WAITE on 10/03/2024 at 16:39 PM EST 4.?Other specified disorders of penis? Notes: Reviewed clt's concerns for penile symptoms. Will rule out STI's. Could consider Lotrimin OTC tx to see if it relieves symptoms but description doesn't sound typical for balanitis. Suggested PCP and/or Urology follow-up for concerns if testing neg. Do recommend PCP for pelvic pain after a sports injury?? * Procedure Codes:? * Follow Up:?3 Months (Reason: PrEP fu) * Billing Information: * Visit Code:? 82084 Existing - Low Complexity (IN USE). * Procedure Codes:? * Sign off status: Completed true * Provider:BELEN TIDWELL Date:?09/27/2024 Generated for Oralia espinal/Corinne/Rey on:?11/14/2024 04:03 PM EST History and Physical Notes * HPI (History of Present Illness) Category Sub-Category Detail Notes Category Not es Visit Narrative Reason for the visit: testing Current form of control: condoms m ost of the time/prep Presenting Symptoms: ocasonally feels li ke a piching feeling on the head of the penis and soarness in the groin area for about 3 weeks Other Notes for the Clinician: clt here today for testing thinks its related to an injury he recently had but just wants to make sure Last date of UPI: 09/20/24 Patient Location In [place] Examination Category Sub-Category Detail Notes Category Not es General Examination GENERAL APPEARANCE: pleasant, in n o acute distress PSYCH: alert, oriented
--- OUTSIDE RECORDS SUMMARY | 2024-11-14 16:03 | XMS_ITS | Patient Health Record ---
Author Organization [facility] Address [address] [facility] [place], [place] [id number] Care Team Providers Care Industrial Service Technician Name Role Phone SIMÓNTamie VALENTINE Unavailable [phone] SAMANTHA TIDWELL Unavailable [phone] David Thao Unavailable [phone] Allergies Allergen (clinical drug ingredient) Drug/Non Drug Allergy documented on EMR Reaction Allergy Type Onset Date Status Penicillin Unknown Drug Allergy Active Results Component Value Reference Range Notes HCV Antibody-[id number] Reviewed date:03/05/2024 01:23:44 PM Interpretation:Non-reactive Performing Lab:[facility] [place], [address] [facility], Phone - [phone], Director - MDJodry Notes/Report: Hep C Virus Ab Non Reactive Non Reactive HCV antibody alone does not differentiate between previously resolved infection and active infection. Equivocal and Reactive HCV antibody results should be followed up with an HCV RNA test to support the diagnosis of active HCV infection. HIV Ab/p24 Ag with Reflex-08 [id number] Reviewed date:03/05/2024 01:23:26 PM Interpretation:Negative Performing Lab:[facility], [address] [facility], Phone - [phone], Director - MDJodry Notes/Report: HIV Ab/p24 Ag Screen Non Reactive Non Reactive HIV Negative HIV-1/HIV-2 antibodies and HIV-1 p24 antigen were NOT detected. There is no laboratory evidence of HIV infection. Ct/GC KETAN, Pharyngeal-[id number] Reviewed date:09/30/2024 12:36:31 PM Interpretation:Negative Performing Lab:[facility] [place], [address], [address], [place], Phone - [phone], Director - [facility] Notes/Report: C. trachomatis, KETAN, Pharyn Negative Negative N. gonorrhoeae, KETAN, Pharyn Negative Negative Ct/GC KETAN, Rectal-[id number] Reviewed date:09/30/2024 12:36:40 PM Interpretation:Negative Performing Lab:[facility] [place], [address], [address], [place], Phone - [phone], Director - [facility] Notes/Report: C. trachomatis, KETAN, Rectal Negative Negative N. gonorrhoeae, KETAN, Rectal Negative Negative Chlamydia/GC Amplification-1 [id number] Reviewed date:09/29/2024 08:21:49 PM Interpretation:Negative Performing Lab:[facility] [place], [address], [address], [place], Phone - [phone], Director - [facility] Notes/Report: Chlamydia trachomatis, KETAN Negative Negative Neisseria gonorrhoeae, KETAN Negative Negative HIV Ab/p24 Ag with Reflex-08 [id number] Reviewed date:10/03/2024 04:39:48 PM Interpretation:Negative Performing Lab:[facility] [place], [address], [address], [place], Phone - [phone], Director - [facility] Notes/Report: HIV Ab/p24 Ag Screen Non Reactive Non Reactive HIV-1/HIV-2 antibodies and HIV-1 p24 antigen were NOT detected. There is no laboratory evidence of HIV infection. HIV Negative T pallidum Screening Chauvin -[id number] Reviewed date:09/30/2024 12:36:51 PM Interpretation:Negative Performing Lab:[facility] [place], [address], [address], [place], Phone - [phone], Director - [facility] Notes/Report: T pallidum Antibodies Non Reactive Non Reactive Ct/GC KETAN, Rectal-[id number] Reviewed date:04/01/2024 06:11:28 PM Interpretation:Negative Performing Lab:[facility] [place], [address], [place], Phone - [phone], [facility] Notes/Report: C. trachomatis, KETAN, Rectal Negative Negative N. gonorrhoeae, KETAN, Rectal Negative Negative Chlamydia/GC Amplification-1 [id number] Reviewed date:04/01/2024 06:11:44 PM Interpretation:Negative Performing Lab:[facility] [place], [address], [address], [place], Phone - [phone], Director - [facility] Notes/Report: Chlamydia trachomatis, KETAN Negative Negative Neisseria gonorrhoeae, KETAN Negative Negative HIV Ab/p24 Ag with Reflex-08 [id number] Reviewed date:04/01/2024 10:32:35 AM Interpretation:Negative [facility]forming Lab:[facility], [address] [place] [address], Phone - [phone], Director - [facility] Notes/Report: HIV Ab/p24 Ag Screen Non Reactive Non Reactive HIV Negative HIV-1/HIV-2 antibodies and HIV-1 p24 antigen were NOT detected. There is no laboratory evidence of HIV infection. T pallidum Screening Chauvin -[id number] Reviewed date:04/01/2024 10:30:43 AM Interpretation:Negative Performing Lab:[facility], [address] [place] [address], Phone - [phone], Director - [facility] Notes/Report: T pallidum Antibodies Non Reactive Non Reactive Hepatitis B Surf Ab Quant-00 [id number] Reviewed date:04/01/2024 12:28:49 PM Interpretation:Not Immune Performing Lab:[facility], [address], [address] [facility], [place], Phone - [phone], Director - [facility] Notes/Report: Hepatitis B Surf Ab Quant <3.5 Immunity>9.9 mI U/mL Status of Immunity Anti-HBs Level Inconsistent with Immunity 0.0 - 9.9 Consistent with Immunity >9.9 Effective April 07, 2024 the reference interval will be changing to: Immunity >10 HBsAg Screen-[id number] Reviewed date:04/01/2024 12:26:37 PM Interpretation:Negative Performing Lab:[facility] [place], [address], [address], [place], Phone - [phone], Director - [facility] Notes/Report: HBsAg Screen Negative Negative Creatinine-[id number] Reviewed date:04/01/2024 10:32:28 AM Interpretation:Creatinine 0.65/GqVq542 ml/min [facility]forming Lab:[facility], [address] [place] [address], Phone - [phone], Director - [facility] Notes/Report: Creatinine 0.65 0.76-1.27 mg/dL eGFR 132 >59 mL/min/1.73 Trich vag by KETAN-[id number] Reviewed date:03/25/2024 09:58:16 AM Interpretation:Negative Performing Lab:[facility] [place], [address], [address], [place], Phone - [phone], Director - [facility] Notes/Report: Trich vag by KETAN Negative Negative Chlamydia/GC Amplification-1 [id number] Reviewed date:03/25/2024 09:58:08 AM Interpretation:Negative Performing Lab:[facility] [place], [address], [place], Phone - [phone], Director - [facility] Notes/Report: Chlamydia trachomatis, KETAN Negative Negative Neisseria gonorrhoeae, KETAN Negative Negative HIV Ab/p24 Ag with Reflex-08 [id number] Reviewed date:03/25/2024 09:58:26 AM Interpretation:Non-reactive Performing Lab:[facility] [place], [address], [address], [employer], Phone - [phone], Director - [facility] Notes/Report: HIV Ab/p24 Ag Screen Non Reactive Non Reactive HIV-1/HIV-2 antibodies and HIV-1 p24 antigen were NOT detected. There is no laboratory evidence of HIV infection. HIV Negative T pallidum Screening Chauvin -[id number] Reviewed date:03/25/2024 09:49:13 AM Interpretation:Non-reactive Performing Lab:[facility] [place], [address] [place] [address], Phone - [phone], Director - [facility] Notes/Report: T pallidum Antibodies Non Reactive Non Reactive HCV Antibody-[id number] Reviewed date:02/28/2024 11:44:43 AM Interpretation:DUPLICATE/TNP Performing Lab:[facility] [place], [address], [address], [employer], Phone - [phone], Director - [facility] Notes/Report: Hep C Virus Ab TNP Please refer to the following specimen for additional lab results. Please see [id number] for results. HCV antibody alone does not differentiate between previously resolved infection and active infection. Equivocal and Reactive HCV antibody results should be followed up with an HCV RNA test to support the diagnosis of active HCV infection. Request Problem TNP Please refer to the following specimen for additional lab results. TEST: [id number] HIV Ab/p24 Ag with Reflex [id number] HCV Antibody Please see [id number] for results. Ct/GC KETAN, Rectal-[id number] Reviewed date:02/25/2024 03:45:48 PM Interpretation:Negative Performing Lab:[facility] [address], [address], [place], Phone - [phone], Director - [facility] Notes/Report: Test(s) 171634-E. trachomatis, KETAN, Rectal; 118291- N. gonorrhoeae, KETAN, Rectal was developed and its performance characteristics determined by [facility]. It has not been cleared or approved by the Food and Drug Administration. C. trachomatis, KETAN, Rectal Negative Negative N. gonorrhoeae, KETAN, Rectal Negative Negative Chlamydia/GC Amplification-1 73292 Reviewed date:02/25/2024 12:48:39 PM Interpretation:Negative Performing Lab:[facility] [place], [address], [address], [place], Phone - [phone], Director - [facility] Notes/Report: Chlamydia trachomatis, KETAN Negative Negative Neisseria gonorrhoeae, KETAN Negative Negative HIV Ab/p24 Ag with Reflex-08 3935 Reviewed date:02/28/2024 11:44:22 AM Interpretation:DUPLICATE/TNP Performing Lab:[facility] [address], [address], [place], Phone - [phone], Director - [facility] Notes/Report: HIV Ab/p24 Ag Screen TNP Please refer to the following specimen for additional lab results. Please see [id number] for results. 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 Vital Signs Blood pressure diastolic 72 mm Hg 03/31/2024 Height 67 in 03/31/2024 Blood pressure systolic 128 mm Hg 03/31/2024 Weight 146.8 lbs 03/31/2024 BMI 22.99 kg/m2 03/31/2024 Encounters Encounter Location Date Provider Diagnosis [address] [id number] 02/21/2024 SAMANTHA TIDWELL Encounter for screen ing for infections with a predominantly sexual mode of transmission Z11.3 ; Counseling, unspecified Z71.9 ; Other problems related to lifestyle Z72.89 ; Encounter for screening for human immunodeficiency virus [HIV] Z11.4 and Screening for other viral diseases Z11.[address] [id number] 03/13/2024 SAMANTHA TIDWELL Encounter for screen ing for infections with a predominantly sexual mode of transmission Z11.3 ; Counseling, unspecified Z71.9 ; Other problems related to lifestyle Z72.89 and Encounter for screening for human immunodeficiency virus [HIV] Z11.[address] [id number] 03/31/2024 VALENTINE CARRASCO Encounter for screen ing for infections with a predominantly sexual mode of transmission Z11.3 ; Counseling, unspecified Z71.9 ; Contact with and (suspected) exposure to other viral communicable diseases Z20.828 ; Encounter for HIV pre-exposure prophylaxis Z29.81 ; Encounter for other specified prophylactic measures Z29.89 ; Encounter for screening for human immunodeficiency virus [HIV] Z11.4 ; Other half-way (current) drug therapy Z79.899 ; Problem related to lifestyle, unspecified Z72.9 and Encounter for screening for other viral diseases Z11.59 [facility] [address] [place], [place] [id number] 09/27/2024 SAMANTHA TIDWELL Encounter for screen ing for infections with a predominantly sexual mode of transmission Z11.3 ; Counseling, unspecified Z71.9 ; Other problems related to lifestyle Z72.89 ; HIV Screening Z11.4 and Other specified disorders [facility]48.[facility] [id number] 04/01/2024 VALENTINE CARRASCO [facility] [address] [id number] 09/27/2024 SAMANTHA TIDWELL Assessments Encounter Date Diagnosis (ICD Code) Assessment Notes Treatment Notes Treatment Clinical Notes Section Notes 02/21/2024 Encounter for screening for infections with a predominantly sexual mode of transmission (ICD-10 - Z11.3) Discussed STI risks, screenings that are available through [facility] and safe sex. For Hep C screening today. Clt aware of lab processing times and how to view results on portal and how positive results will be communicated. Clt will return for appt in 4 weeks to retest in window for UPI on 02/15/24. Baseline testing completed today for HIV/syphilis/hep c and GC/CT rectal and urine. No concerns for exposure through oral sex. Discussed options for PrEP therapy. Clt interested and will consider more before next visit Need 2 out of 3 Sections from A-C Section A) Problems (only need one from below) One acute or uncomplicated illness/injury Section B) Data (at least one of the following categories in this section) Category 1: (Choose 2 of the following): Order unique tests Section C) Risk Document low risk of morbidity/morta lity 02/21/2024 Counseling, unspecified (ICD-10 - Z71.9) Need 2 out of 3 Sections from A-C Section A) Problems (only need one from below) One acute or uncomplicated illness/injury Section B) Data (at least one of the following categories in this section) Category 1: (Choose 2 of the following): Order unique tests Section C) Risk Document low risk of morbidity/morta lity 03/13/2024 Encounter for screening for infections with a predominantly sexual mode of transmission (ICD-10 - Z11.3) Discussed STI risks, screenings that are available through [facility] and safe sex. Reviewed encounter is 1 day shy of 4 wks out since encounter. Reviewed window times. Can rescreen at 3 months if continued concerns. Clt aware of lab processing times and how to view results on portal and how positive results will be communicated Need 2 out of 3 Sections from A-C Section A) Problems (only need one from below) One acute or uncomplicated illness/injury Section B) Data (at least one of the following categories in this section) Category 1: (Choose 2 of the following): Order unique tests Section C) Risk Document low risk of morbidity/morta lity 03/13/2024 Counseling, unspecified (ICD-10 - Z71.9) Need 2 out of 3 Sections from A-C Section A) Problems (only need one from below) One acute or uncomplicated illness/injury Section B) Data (at least one of the following categories in this section) Category 1: (Choose 2 of the following): Order unique tests Section C) Risk Document low risk of morbidity/morta lity 03/31/2024 Encounter for screening for infections with a predominantly sexual mode of transmission (ICD-10 - Z11.3) Reviewed STI screening recommendations and available testing through [facility]. Testing ordered as noted per patient risks and preference. Encouraged safe sex practices. Advised to call for evaluation if any symptoms arise. Reviewed method of communicating results to patient. Spent ___ minutes doing the following: Chart Prep Obtaining/revie wing history Performing medically necessary exam Counseling/Coor dination of Care Documenting the visit Educating the patient Ordering medication/test /procedures Communication of test results Established Patient: [id number] 30 Minutes 03/31/2024 Counseling, unspecified (ICD-10 - Z71.9) Spent ___ minutes doing the following: Chart Prep Obtaining/revie wing history Performing medically necessary exam Counseling/Coor dination of Care Documenting the visit Educating the patient Ordering medication/test /procedures Communication of test results Established Patient: [id number] 30 Minutes 09/27/2024 Encounter for screening for infections with a predominantly sexual mode of transmission (ICD-10 - Z11.3) Discussed STI risks, screenings that are available through [facility] and safe sex. Clt aware of lab processing times and how to view results on portal and how positive results will be communicated Spent 25 minutes doing the following: Chart Prep Obtaining/revie wing history Counseling/Coor dination of Care Documenting the visit Educating the patient Ordering medication/test /procedures Established Patient: [id number] 20 Minutes 09/27/2024 Counseling, unspecified (ICD-10 - Z71.9) Clt not in need of any refills on [facility]. Continue to use on-demand. Recommend fu every 3 months Spent 25 minutes doing the following: Chart Prep Obtaining/revie wing history Counseling/Coor dination of Care Documenting the visit Educating the patient Ordering medication/test /procedures Established Patient: [id number] 20 Minutes 09/27/2024 Other problems related to lifestyle (ICD-10 - Z72.89) Spent 25 minutes doing the following: Chart Prep Obtaining/revie wing history Counseling/Coor dination of Care Documenting the visit Educating the patient Ordering medication/test /procedures Established Patient: 62224 20 Minutes 03/31/2024 Contact with and (suspected) exposure to other viral communicable diseases (ICD-10 - Z20.828) Spent ___ minutes doing the following: Chart Prep Obtaining/revie wing history Performing medically necessary exam Counseling/Coor dination of Care Documenting the visit Educating the patient Ordering medication/test /procedures Communication of test results Established Patient: 99114 30 Minutes 03/13/2024 Other problems related to lifestyle (ICD-10 - Z72.89) Need 2 out of 3 Sections from A-C Section A) Problems (only need one from below) One acute or uncomplicated illness/injury Section B) Data (at least one of the following categories in this section) Category 1: (Choose 2 of the following): Order unique tests Section C) Risk Document low risk of morbidity/morta lity 02/21/2024 Other problems related to lifestyle (ICD-10 - Z72.89) Need 2 out of 3 Sections from A-C Section A) Problems (only need one from below) One acute or uncomplicated illness/injury Section B) Data (at least one of the following categories in this section) Category 1: (Choose 2 of the following): Order unique tests Section C) Risk Document low risk of morbidity/morta lity 02/21/2024 Encounter for screening for human immunodeficiency virus [HIV] (ICD-10 - Z11.4) Need 2 out of 3 Sections from A-C Section A) Problems (only need one from below) One acute or uncomplicated illness/injury Section B) Data (at least one of the following categories in this section) Category 1: (Choose 2 of the following): Order unique tests Section C) Risk Document low risk of morbidity/morta lity 03/13/2024 Encounter for screening for human immunodeficiency virus [HIV] (ICD-10 - Z11.4) Need 2 out of 3 Sections from A-C Section A) Problems (only need one from below) One acute or uncomplicated illness/injury Section B) Data (at least one of the following categories in this section) Category 1: (Choose 2 of the following): Order unique tests Section C) Risk Document low risk of morbidity/morta lity 03/31/2024 Encounter for HIV pre-exposure prophylaxis (ICD-10 - Z29.81) PrEP reduces the risk of getting HIV from sex by about 99% when taken as prescribed. Among people who inject drugs, it reduces the risk by at least 74% when taken as prescribed. Once you start PrEP, you will need to take PrEP every day. PrEP is much less effective when it is not taken every day. Discussed options for taking PrEP on Demand (2-1-1) regimen. This is a non-daily PrEP dosing strategy that has only been evaluated in MSM and was 86% effective at preventing HIV transmission. This is not FDA approved. Clt prefers to take as needed instead of daily. Continue to use condoms while taking PrEP. Even though daily PrEP can greatly reduce your risk of HIV, it does not protect against other STDs, such as gonorrhea, chlamydia, or syphilis. Combining condom use with PrEP will further reduce your risk of HIV, as well as protect you from other STDs. You must also take an HIV test every 3 months while taking PrEP, so you will have regular follow-up visits prior to refill authorizations. Advised clt to follow up if having trouble taking PrEP every day or if clt wants to stop taking PrEP. PrEP is safe, but some people experience side effects like diarrhea, nausea, headache, fatigue, and stomach pain. These side effects usually go away over time within 4-8 weeks after starting medication. Reviewed resources if clt is uninsured or needs co-pay assistance to help lower the cost of PrEP medication: The Ready, Set, PrEP program and [place] HIV Drug Assistance Program (HDAP) which makes PrEP available at no cost to those who qualify. [employer] offers a program to help patients pay for PrEP shots. Spent ___ minutes doing the following: Chart Prep Obtaining/revie wing history Performing medically necessary exam Counseling/Coor dination of Care Documenting the visit Educating the patient Ordering medication/test /procedures Communication of test results Established Patient: 19508 30 Minutes 09/27/2024 HIV Screening (ICD-10 - Z11.4) Spent 25 minutes doing the following: Chart Prep Obtaining/revie wing history Counseling/Coor dination of Care Documenting the visit Educating the patient Ordering medication/test /procedures Established Patient: 55566 20 Minutes 09/27/2024 Other specified disorders of [...] 25 minutes doing the following: Chart Prep Obtaining/revie wing history Counseling/Coor dination of Care Documenting the visit Educating the patient Ordering medication/test /procedures Established Patient: 58643 20 Minutes 03/31/2024 Encounter for other specified prophylactic measures (ICD-10 - Z29.89) Discussed effectiveness, benefits, and risks of Doxy-PEP, as well as other options available to prevent STIs. Reviewed full spectrum of prevention options available to clt, including alternatives to Doxy-PEP (e.g., condom use), STI testing and treatment, HIV pre-exposure prophylaxis (PrEP) and emergency post-exposure prophylaxis (PEP), HIV testing, HIV treatment for people with HIV, and STI vaccines (e.g., human papillomavirus, hepatitis A, hepatitis B, and Mpox vaccines Doxy-PEP has been shown in studies to reduce the incidence of syphilis, chlamydia, and gonorrhea among cisgender men who have sex with men (MSM) and transgender women with a recent history of these infections. Reductions of 87% for syphilis, 88% for chlamydia, and 55% for gonorrhea among people taking HIV PrEP, and reductions of 77% for syphilis, 74% for chlamydia, and 57% for gonorrhea among people with HIV. Doxy-PEP for bacterial STI prevention consists of 200 mg of doxycycline taken ideally within 24 hours, but no later than 72 hours, after condomless oral, anal, or vaginal/front whole sex. Doxycycline can be taken as often as every day, depending on frequency of condomless sexual exposure, but no more than 200 mg should be taken within a 24-hour period. It should be taken at least 1 hour before or 2 hours after antacids, calcium, or iron-containing products. Studies are needed on the potential long-term effects of Doxy-PEP on individual and population health. Side effects include: microbiome changes and antibiotic resistance Spent ___ minutes doing the following: Chart Prep Obtaining/revie wing history Performing medically necessary exam Counseling/Coor dination of Care Documenting the visit Educating the patient Ordering medication/test /procedures Communication of test results Established Patient: 38427 30 Minutes 02/21/2024 Screening for other viral diseases (ICD-10 - Z11.59) Need 2 out of 3 Sections from A-C Section A) Problems (only need one from below) One acute or uncomplicated illness/injury Section B) Data (at least one of the following categories in this section) Category 1: (Choose 2 of the following): Order unique tests Section C) Risk Document low risk of morbidity/morta lity 03/31/2024 Encounter for screening for human immunodeficiency virus [HIV] (ICD-10 - Z11.4) Spent ___ minutes doing the following: Chart Prep Obtaining/revie wing history Performing medically necessary exam Counseling/Coor dination of Care Documenting the visit Educating the patient Ordering medication/test /procedures Communication of test results Established Patient: 25585 30 Minutes 03/31/2024 Other half-way (current) drug therapy (ICD-10 - Z79.899) Spent ___ minutes doing the following: Chart Prep Obtaining/revie wing history Performing medically necessary exam Counseling/Coor dination of Care Documenting the visit Educating the patient Ordering medication/test /procedures Communication of test results Established Patient: [id number] 30 Minutes 03/31/2024 Problem related to lifestyle, unspecified (ICD-10 - Z72.9) Spent ___ minutes doing the following: Chart Prep Obtaining/revie wing history Performing medically necessary exam Counseling/Coor dination of Care Documenting the visit Educating the patient Ordering medication/test /procedures Communication of test results Established Patient: 23565 30 Minutes 03/31/2024 Encounter for screening for other viral diseases (ICD-10 - Z11.59) Spent ___ minutes doing the following: Chart Prep Obtaining/revie wing history Performing medically necessary exam Counseling/Coor dination of Care Documenting the visit Educating the patient Ordering medication/test /procedures Communication of test results Established Patient: 51152 30 Minutes Plan Of Treatment No Information Insurance Providers Payer Name Payer Address Payer Phone Subscriber Number Group Number Insured Name Patient Relationship to Insured Coverage Start Date Coverage End Date [employer] [address] [place], [place] [id number] Van Londono Self - patient is the insured Medical (General) History Medical History History ICD Code Depression Hep B, not immune
--- OUTSIDE RECORDS SUMMARY | 2024-11-14 16:03 | XMS_ITS ---
Author Organization [facility] Address [address] [place] [phone] Care Team Providers Care Research Center Director Name Role Phone SAMANTHA TIDWELL Unavailable [phone] REASON FOR VISIT PrEP F/U Social History Sex Assigned At : Social History Observation Description Sex Assigned At Male Encounters Encounter Location Date Provider Diagnosis [facility] [address] [place] [address] ite [place], [place] [phone] 07/17/2024 SAMANTHA TIDWELL Plan Of Treatment No Information Progress Notes * Van WILLISDOB:[birth year] (29 yo M)Acc No.[id number]:07/17/2024 Progress Notes Patient:?Van WILLIS Provider:BELEN TIDWELL :1995???Age:29 Y???Sex:Male Paulo e:07/17/2024 Address:[address] [place], [place] [id number] Subjective: * Chief Complaints: * ???1. PrEP F/U. * Medical History:? Objective: * Vitals:? Assessment: Plan: * Treatment: * Billing Information: * Visit Code:? * Procedure Codes:? * Electronic signature of ELENA TIDWELL CNM on 11/14/2024 at 04:03 PM EST Sign off status: Pending * Provider:BELEN TIDWELL Date:?07/17/2024 Generated for Oralia espinal/Corinne/eTdimitrysmitting on:?11/14/2024 04:03 PM EST
== END 2024-11-14 17:02 | disposition home or self-care (01) ==
DX: F41.9 Anxiety disorder, unspecified (principal); F41.0 Panic disorder [episodic paroxysmal anxiety]; Z11.3 Encounter for screening for infections with a predominantly sexual mode of transmission; R10.2 Pelvic and perineal pain; R10.32 Left lower quadrant pain

== ENCOUNTER → 2024-11-14 16:00 | Outpatient (BNVA) | payer OTHER, SELFPAY | DX: F41.0 Panic disorder [episodic paroxysmal anxiety] (principal); R10.2 Pelvic and perineal pain; R10.32 Left lower quadrant pain; Z79.899 Other long term (current) drug therapy | CPT/HCPCS: 96127 ==

== ENCOUNTER 2024-11-26 08:44 | Outpatient (REF) | payer OTHER, SELFPAY ==
--- OUTSIDE RECORDS SUMMARY | 2024-11-26 08:50 | XMS_ITS ---
Author Organization [facility] Address [address] [phone] Care Team Providers Care Welding Foreman Name Role Phone SAMANTHA TIDWELL Unavailable [phone] REASON FOR VISIT PrEP fu Social History Sex Assigned At : Social History Observation Description Sex Assigned At Male Encounters Encounter Location Date Provider Diagnosis [address] [phone] 09/27/2024 SAMANTHA TIDWELL Plan Of Treatment No Information Progress Notes * WILLISVanDOB:[birth year] (29 yo M)Acc No.[id number]:09/27/2024 Patient:?Van WILLIS :1995???Age:29 Y???Sex:Male Address:[address] [place] [address], [phone] * true * Date:? Generated for Antonioi teddy/Corinne/eTransmitting on:?11/26/2024 08:49 AM EST
--- OUTSIDE RECORDS SUMMARY | 2024-11-26 08:50 | XMS_ITS ---
Author Organization [facility] Address [address] [place] [address] [place], [place] [phone] Care Team Providers Care Ophthalmic Dispenser Name Role Phone SAMANTHA TIDWELL [facility] [phone] Allergies Allergen (clinical drug ingredient) Drug/Non Drug Allergy documented on EMR Reaction Allergy Type Onset Date Status Penicillin Unknown Drug Allergy Active Results Component Value Reference Range Notes T pallidum Screening Leake -[id number] Reviewed date:09/30/2024 12:36:51 PM Interpretation:Negative Performing Lab:[facility], [address], [address], [place], Phone - [phone], [facility] Notes/Report: T pallidum Antibodies Non Reactive Non Reactive HIV Ab/p24 Ag with Reflex-[id number] Reviewed date:10/03/2024 04:39:48 PM Interpretation:Negative Performing Lab:[facility], [address], [place], Phone - [phone], Director - [facility] Notes/Report: HIV Ab/p24 Ag Screen Non Reactive Non Reactive HIV-1/HIV-2 antibodies and HIV-1 p24 antigen were NOT detected. There is no laboratory evidence of HIV infection. HIV Negative Chlamydia/GC Amplification-1 [id number] Reviewed date:09/29/2024 08:21:49 PM Interpretation:Negative Performing Lab:[facility], [address], [place], Phone - [phone], Director - [facility] Notes/Report: Chlamydia trachomatis, KETAN Negative Negative Neisseria gonorrhoeae, KETAN Negative Negative Ct/GC KETAN, Rectal-[id number] Reviewed date:09/30/2024 12:36:40 PM Interpretation:Negative Performing Lab:[facility], [address], [place], Phone - [phone], Director - [facility] Notes/Report: C. trachomatis, KETAN, Rectal Negative Negative N. gonorrhoeae, KETAN, Rectal Negative Negative Ct/GC KETAN, Pharyngeal-[id number] Reviewed date:09/30/2024 12:36:31 PM Interpretation:Negative Performing Lab:[facility], [address], [address], [place], Phone - [phone], Director - [facility] Notes/Report: C. 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 Continue to use on-demand. Recommend fu every 3 months Spent 25 minutes doing the following: Chart Prep Obtaining/r eviewing history Counseling/ Coordinatio n of Care Documenting the visit Educating the patient Ordering medication/ test/proced ures Established Patient: 89158 20 Minutes 09/27/2024 Other problems related to lifestyle (ICD-10 - Z72.89) Spent 25 minutes doing the following: Chart Prep Obtaining/r eviewing history Counseling/ Coordinatio n of Care Documenting the visit Educating the patient Ordering medication/ test/proced ures Established Patient: 46577 20 Minutes 09/27/2024 HIV Screening (ICD-10 - Z11.4) Spent 25 minutes doing the following: Chart Prep Obtaining/r eviewing history Counseling/ Coordinatio n of Care Documenting the visit Educating the patient Ordering medication/ test/proced ures Established Patient: 79577 20 Minutes 09/27/2024 Other specified disorders of [...] patient Ordering medication/ test/proced ures Established Patient: 30850 20 Minutes Plan Of Treatment Treatment Notes [...] * Van WILLISDOB:[birth year] (29 yo M)Acc No.[id number]:09/27/2024 Patient:?Van WILLIS Provider:?SAMANTHA TIDWELL :1995???Age:29 Y???Sex:Male Paulo e:09/27/2024 Address:[address] [place], [place] [phone] Subjective: * Chief Complaints: * ???STI Screen [...] Educating the patient Ordering medication/test/procedures Established Patient: 38406 20 Minutes Plan: * Treatment: ? Value Reference Range ?T pallidum Antibodies Non Reactive N on Reactive - * This lab was reviewed by EFRAÍN WAITE on 09/30/2024 at 12:36 PM EST ?LAB: Chlamydia/GC Amplification-[id number] (Collection Date & Time - 09/27/2024 11:55 [...] at 20:21 PM EST ?LAB: Ct/GC KETAN, Rectal-[id number] (Collection Date & Time - 09/27/2024 11:55 AM)* ? Value Reference Range ?C. trachomatis, KETAN, Rectal Negative Negative - * ?N. gonorrhoeae, KETAN, Rectal Negative Negative - * This lab was reviewed by EFRAÍN WAITE on 09/30/2024 at 12:36 PM EST ?LAB: Ct/GC KETAN, Pharyngeal-[id number] (Collection Date & Time - 09/27/2024 11:55 [...] 3 months??3.?HIV Screening?LAB: HIV Ab/p24 Ag with Reflex-[id number] (Collection Date & Time - 09/27/2024 11:55 [...] fu) * Billing Information: * Visit Code:? 70675 Existing - Low Complexity (IN USE). * Procedure Codes:? * Sign off status: Completed true * Provider:BELEN TIDWELL Date:?09/27/2024 Generated for Oralia espinal/Corinne/Rey on:?11/26/2024 08:50 AM EST History and Physical Notes * HPI [...]
--- OUTSIDE RECORDS SUMMARY | 2024-11-26 08:50 | XMS_ITS | Patient Health Record ---
Author Organization [facility] Address [address] [facility] [place], [place] [id number] Care Team Providers Care Community Recreation Programmer Name Role Phone SIMÓNTamie VALENTINE Unavailable [phone] SAMANTHA TIDWELL Unavailable [phone] David Thao Unavailable [phone] Allergies Allergen (clinical drug ingredient) Drug/Non Drug Allergy documented on EMR Reaction Allergy Type Onset Date Status Penicillin Unknown Drug Allergy Active Results Component Value Reference Range Notes Ct/GC KETAN, Rectal-[id number] Reviewed date:04/01/2024 06:11:28 PM Interpretation:Negative Performing Lab:[facility], [address], [address], [employer] Phone - [phone], Director - [facility] Notes/Report: C. trachomatis, KETAN, Rectal Negative Negative N. gonorrhoeae, KETAN, Rectal Negative Negative Chlamydia/GC Amplification-1 [id number] Reviewed date:04/01/2024 06:11:44 PM Interpretation:Negative Performing Lab:[facility], [address], [address], [place], Phone - [phone], Director - [facility] Notes/Report: Chlamydia trachomatis, KETAN Negative Negative Neisseria gonorrhoeae, KETAN Negative Negative HIV Ab/p24 Ag with Reflex-08 3935 Reviewed date:04/01/2024 10:32:35 AM Interpretation:Negative Performing Lab:[facility], [address] [facility], [place], Phone - [phone], Director [facility] Notes/Report: HIV Ab/p24 Ag Screen Non Reactive Non Reactive HIV Negative HIV-1/HIV-2 antibodies and HIV-1 p24 antigen were NOT detected. There is no laboratory evidence of HIV infection. T pallidum Screening [place] -[id number] Reviewed date:04/01/2024 10:30:43 AM Interpretation:Negative Performing Lab:[facility], [address] [facility], Phone - [phone], Director - [place] Notes/Report: T pallidum Antibodies Non Reactive Non Reactive Hepatitis B Surf Ab Quant-00 6530 Reviewed date:04/01/2024 12:28:49 PM Interpretation:Not Immune Performing Lab:[facility], [address], [address], [employer] Phone - [phone], Director - [facility] Notes/Report: Hepatitis B Surf Ab Quant <3.5 Immunity>9.9 mI U/mL Status of Immunity Anti-HBs Level Inconsistent with Immunity 0.0 - 9.9 Consistent with Immunity >9.9 Effective April 07, 2024 the reference interval will be changing to: Immunity >10 HBsAg Screen-[id number] Reviewed date:04/01/2024 12:26:37 PM Interpretation:Negative Performing Lab:[facility], [address], [address], [employer] Phone - [phone], Director - [facility] Notes/Report: HBsAg Screen Negative Negative Creatinine-155165 Reviewed date:04/01/2024 10:32:28 AM Interpretation:Creatinine 0.65/CfFn361 ml/min Performing Lab:[facility] [place], [address] [facility], Phone - [phone], Director - [place] Notes/Report: Creatinine 0.65 0.76-1.27 mg/dL eGFR 132 >59 mL/min/1.73 T pallidum Screening [place] -[id number] Reviewed date:09/30/2024 12:36:51 PM Interpretation:Negative Performing Lab:[facility], [address], [address], [employer] Phone - [phone], Director - [facility] Notes/Report: T pallidum Antibodies Non Reactive Non Reactive HIV Ab/p24 Ag with Reflex-08 3935 Reviewed date:10/03/2024 04:39:48 PM Interpretation:Negative Performing Lab:[facility] [place], [address], [address], [place], Phone - [phone], Director - [facility] Notes/Report: HIV Ab/p24 Ag Screen Non Reactive Non Reactive HIV-1/HIV-2 antibodies and HIV-1 p24 antigen were NOT detected. There is no laboratory evidence of HIV infection. HIV Negative Chlamydia/GC Amplification-1 79224 Reviewed date:09/29/2024 08:21:49 PM Interpretation:Negative Performing Lab:[facility], [address], [address], [place], Phone - [phone], Director - [facility] Notes/Report: Chlamydia trachomatis, KETAN Negative Negative Neisseria gonorrhoeae, KETAN Negative Negative Ct/GC KETAN, Rectal-[id number] Reviewed date:09/30/2024 12:36:40 PM Interpretation:Negative Performing Lab:[facility], [address], [address], [place], Phone - [phone], Director - [facility] Notes/Report: C. trachomatis, KETAN, Rectal Negative Negative N. gonorrhoeae, KETAN, Rectal Negative Negative Ct/GC KETAN, Pharyngeal-[id number] Reviewed date:09/30/2024 12:36:31 PM Interpretation:Negative Performing Lab:[facility], [address], [address], [employer] Phone - [phone], Director - [facility] Notes/Report: C. trachomatis, KETAN, Pharyn Negative Negative N. gonorrhoeae, KETAN, Pharyn Negative Negative T pallidum Screening [place] -[id number] Reviewed date:02/28/2024 11:59:08 AM Interpretation:Non-reactive Performing Lab:[facility], [address] [place] [address], Phone - [phone], Director [facility] Notes/Report: Clinical Information:USED SERUM #[id number] T pallidum Antibodies Non Reactive Non Reactive HIV Ab/p24 Ag with Reflex-08 3935 Reviewed date:02/28/2024 11:44:22 AM Interpretation:DUPLICATE/TNP Performing Lab:[facility], [address], [address], [place], Phone - [phone], Director - [facility] Notes/Report: HIV Ab/p24 Ag Screen TNP Please refer to the following specimen for additional lab results. Please see [id number] for results. Chlamydia/GC Amplification-1 52234 Reviewed date:02/25/2024 12:48:39 PM Interpretation:Negative Performing Lab:[facility] [place], [address], [place], Phone - [phone], Director - [facility] Notes/Report: Chlamydia trachomatis, KETAN Negative Negative Neisseria gonorrhoeae, KETAN Negative Negative Ct/GC KETAN, Rectal-[id number] Reviewed date:02/25/2024 03:45:48 PM Interpretation:Negative Performing Lab:[facility] [place], [address], [place], Phone - [phone], Director - [facility] Notes/Report: Test(s) 367585-S. trachomatis, KETAN, Rectal; 091281- N. gonorrhoeae, KETAN, Rectal was developed and its performance characteristics determined by [facility]. It has not been cleared or approved by the Food and Drug Administration. C. trachomatis, KETAN, Rectal Negative Negative N. gonorrhoeae, KETAN, Rectal Negative Negative HCV Antibody-083795 Reviewed date:02/28/2024 11:44:43 AM Interpretation:DUPLICATE/TNP Performing Lab:[facility] [place], [address], [place], Phone - [phone], Director - [facility] Notes/Report: Hep C Virus Ab TNP Please refer to the following specimen for additional lab results. Please see [id number] for results. HCV antibody alone does not differentiate between previously resolved infection and active infection. Equivocal and Reactive HCV antibody results should be followed up with an HCV RNA test to support the diagnosis of active HCV infection. Request Problem TNP Please refer to the following specimen for additional lab results. TEST: [id number] HIV Ab/p24 Ag with Reflex [id number] HCV Antibody Please see [id number] for results. T pallidum Screening [place] -[id number] Reviewed date:03/25/2024 09:49:13 AM Interpretation:Non-reactive Performing Lab:[facility] [place], [address] [place] [address], [place], Phone - [phone], Director - [facility] Notes/Report: T pallidum Antibodies Non Reactive Non Reactive HIV Ab/p24 Ag with Reflex-08 3935 Reviewed date:03/25/2024 09:58:26 AM Interpretation:Non-reactive Performing Lab:[facility] [place], [address], [address], [place], Phone - [phone], Director - [facility] Notes/Report: HIV Ab/p24 Ag Screen Non Reactive Non Reactive HIV-1/HIV-2 antibodies and HIV-1 p24 antigen were NOT detected. There is no laboratory evidence of HIV infection. HIV Negative Chlamydia/GC Amplification-1 99147 Reviewed date:03/25/2024 09:58:08 AM Interpretation:Negative Performing Lab:[facility] [place], [address], [address], [place], Phone - [phone], Director - [facility] Notes/Report: Chlamydia trachomatis, KETAN Negative Negative Neisseria gonorrhoeae, KETAN Negative Negative Trich vag by KETAN-133963 Reviewed date:03/25/2024 09:58:16 AM Interpretation:Negative Performing Lab:[facility] [place], [address], [address], [place], Phone - [phone], Director - [facility] Notes/Report: Trich vag by KETAN Negative Negative HCV Antibody-407434 Reviewed date:03/05/2024 01:23:44 PM Interpretation:Non-reactive Performing Lab:[facility] [place], [address] [facility], Phone - [phone], Director - [facility] Notes/Report: Hep C Virus Ab Non Reactive Non Reactive HCV antibody alone does not differentiate between previously resolved infection and active infection. Equivocal and Reactive HCV antibody results should be followed up with an HCV RNA test to support the diagnosis of active HCV infection. HIV Ab/p24 Ag with Reflex-08 3935 Reviewed date:03/05/2024 01:23:26 PM Interpretation:Negative Performing Lab:[facility] [place], [address] [facility], Phone - [phone], Director - [facility] Notes/Report: HIV Ab/p24 Ag Screen Non Reactive Non Reactive HIV Negative HIV-1/HIV-2 antibodies and HIV-1 p24 antigen were NOT detected. There is no laboratory evidence of HIV infection. 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 Vital Signs Blood pressure diastolic 72 mm Hg 03/31/2024 Height 67 in 03/31/2024 Blood pressure systolic 128 mm Hg 03/31/2024 Weight 146.8 lbs 03/31/2024 BMI 22.99 kg/m2 03/31/2024 Encounters Encounter Location Date Provider Diagnosis [address] [id number] 02/21/2024 SAMANTHA TIDWELL Encounter for screen ing for infections with a predominantly sexual mode of transmission Z11.3 ; Counseling, unspecified Z71.9 ; Other problems related to lifestyle Z72.89 ; Encounter for screening for human immunodeficiency virus [HIV] Z11.4 and Screening for other viral diseases Z11.[address] [id number] 03/13/2024 SAMANTHA TIDWELL Encounter for screen ing for infections with a predominantly sexual mode of transmission Z11.3 ; Counseling, unspecified Z71.9 ; Other problems related to lifestyle Z72.89 and Encounter for screening for human immunodeficiency virus [HIV] Z11.[address] [id number] 03/31/2024 VALENTINE CARRASCO Encounter for screen ing for infections with a predominantly sexual mode of transmission Z11.3 ; Counseling, unspecified Z71.9 ; Contact with and (suspected) exposure to other viral communicable diseases Z20.828 ; Encounter for HIV pre-exposure prophylaxis Z29.81 ; Encounter for other specified prophylactic measures Z29.89 ; Encounter for screening for human immunodeficiency virus [HIV] Z11.4 ; Other prison (current) drug therapy Z79.899 ; Problem related to lifestyle, unspecified Z72.9 and Encounter for screening for other viral diseases Z11.59 [facility] [address] [place], [place] [phone] 09/27/2024 SAMANTHA TIDWELL Encounter for screen ing for infections with a predominantly sexual mode of transmission Z11.3 ; Counseling, unspecified Z71.9 ; Other problems related to lifestyle Z72.89 ; HIV Screening Z11.4 and Other specified disorders of [facility] N48.[address] [facility] [id number] [facility]/01/[facility] VALENTINE CARRASCO [facility] [address] [id number] 09/27/2024 SAMANTHA TIDWELL Assessments Encounter Date Diagnosis [...] STI screening recommendations and available testing through [facility]. Testing ordered as noted per patient risks and preference. Encouraged safe sex practices. Advised to call for evaluation if any symptoms arise. Reviewed method of communicating results to patient. Spent ___ minutes doing the following: Chart Prep Obtaining/revie wing history Performing medically necessary exam Counseling/Coor dination of Care Documenting the visit Educating the patient Ordering medication/test /procedures Communication of test results Established Patient: 16871 30 Minutes 03/31/2024 Counseling, unspecified (ICD-10 - Z71.9) Spent ___ minutes doing the following: Chart Prep Obtaining/revie wing history Performing medically necessary exam Counseling/Coor dination of Care Documenting the visit Educating the patient Ordering medication/test /procedures Communication of test results Established Patient: 25623 30 Minutes 09/27/2024 Encounter for screening for [...] the patient Ordering medication/test /procedures Established Patient: 69786 20 Minutes 09/27/2024 Counseling, unspecified (ICD-10 - Z71.9) Clt not in need of any refills on Truvada. Continue to use on-demand. Recommend fu every 3 months Spent 25 minutes doing the following: Chart Prep Obtaining/revie wing history Counseling/Coor dination of Care Documenting the visit Educating the patient Ordering medication/test /procedures Established Patient: 36796 20 Minutes 09/27/2024 Other problems related to lifestyle (ICD-10 - Z72.89) Spent 25 minutes doing the following: Chart Prep Obtaining/revie wing history Counseling/Coor dination of Care Documenting the visit Educating the patient Ordering medication/test /procedures Established Patient: 78818 20 Minutes 03/31/2024 Contact with and (suspected) exposure to other viral communicable diseases (ICD-10 - Z20.828) Spent ___ minutes doing the following: Chart Prep Obtaining/revie wing history Performing medically necessary exam Counseling/Coor dination of Care Documenting the visit Educating the patient Ordering medication/test /procedures Communication of test results Established Patient: 86064 30 Minutes 03/13/2024 Other problems related to [...] medication: The Ready, Set, PrEP program and [place] HIV Drug Assistance Program (HDAP) which makes PrEP available at no cost to those who qualify. [employer] offers a program to help patients pay for PrEP shots. Spent ___ minutes doing the following: Chart Prep Obtaining/revie wing history Performing medically necessary exam Counseling/Coor dination of Care Documenting the visit Educating the patient Ordering medication/test /procedures Communication of test results Established Patient: 24694 30 Minutes 09/27/2024 HIV Screening (ICD-10 - Z11.4) Spent 25 minutes doing the following: Chart Prep Obtaining/revie wing history Counseling/Coor dination of Care Documenting the visit Educating the patient Ordering medication/test /procedures Established Patient: 70935 20 Minutes 09/27/2024 Other specified disorders of [...] the patient Ordering medication/test /procedures Established Patient: 05200 20 Minutes 03/31/2024 Encounter for other specified [...] /procedures Communication of test results Established Patient: 81546 30 Minutes 02/21/2024 Screening for other viral [...] /procedures Communication of test results Established Patient: 94208 30 Minutes 03/31/2024 Other long term care phlebotomist (current) drug therapy (ICD-10 - Z79.899) Spent ___ minutes doing the following: Chart Prep Obtaining/revie wing history Performing medically necessary exam Counseling/Coor dination of Care Documenting the visit Educating the patient Ordering medication/test /procedures Communication of test results Established Patient: 27636 30 Minutes 03/31/2024 Problem related to lifestyle, unspecified (ICD-10 - Z72.9) Spent ___ minutes doing the following: Chart Prep Obtaining/revie wing history Performing medically necessary exam Counseling/Coor dination of Care Documenting the visit Educating the patient Ordering medication/test /procedures Communication of test results Established Patient: 86376 30 Minutes 03/31/2024 Encounter for screening for other viral diseases (ICD-10 - Z11.59) Spent ___ minutes doing the following: Chart Prep Obtaining/revie wing history Performing medically necessary exam Counseling/Coor dination of Care Documenting the visit Educating the patient Ordering medication/test /procedures Communication of test results Established Patient: 61306 30 Minutes Plan Of Treatment No Information Insurance Providers Payer Name Payer Address Payer Phone Subscriber Number Group Number Insured Name Patient Relationship to Insured Coverage Start Date Coverage End Date [facility] [address] [place], [place] [id number] Van Londono Self - patient is the insured Medical (General) History Medical History History ICD Code Depression Hep B, not immune
--- OUTSIDE RECORDS SUMMARY | 2024-11-26 08:50 | XMS_ITS ---
Author Organization [facility] Address [address] [place] [id number] Care Team Providers Care Restaurant Shift Supervisor Name Role Phone SAMANTHA TIDWELL Unavailable [phone] REASON FOR VISIT PrEP F/U Social History Sex Assigned At : Social History Observation Description Sex Assigned At Male Encounters Encounter Location Date Provider Diagnosis [facility] [address] [place] [address] [place], [place] [phone] 07/17/2024 SAMANTHA TIDWELL Plan Of Treatment No Information Progress Notes * Van WILLISDOB:[birth year] (29 yo M)Acc No.[id number]:07/17/2024 Progress Notes Patient:?Van WILLIS Provider:BELEN TIDWELL :1995???Age:29 Y???Sex:Male Paulo e:07/17/2024 Address:[address] [place], [place] [phone] Subjective: * Chief Complaints: * ???1. PrEP F/U. * Medical History:? Objective: * Vitals:? Assessment: Plan: * Treatment: * Billing Information: * Visit Code:? * Procedure Codes:? * Electronic signature of ELENA TIDWELL CNM on 11/26/2024 at 08:50 AM EST Sign off status: Pending * Provider:BELEN TIDWELL Date:?07/17/2024 Generated for Oralia espinal/Corinne/eTransmitting on:?11/26/2024 08:50 AM EST
[2024-11-26 10:07] LABS: MANUAL DIFF FLAG NO
[2024-11-26 10:10] LABS: Basophils Percent Auto 0.4 % (0-2); Eosinophils Absolute Auto 0.5 X10*3/uL (0.0-0.4); Eosinophils Percent Auto 6.2 % (0-4); Hematocrit 45.3 % (42.0-52.0); Hemoglobin 15.4 g/dl (14.0-18.0); Imm Gran Abs Auto 0.04 X10*3/uL (0.00-0.03); Imm Gran Pct Auto 0.5 % (0.0-0.4); Lymphocytes Absolute Auto 1.1 X10*3/uL (1.2-4.9); Lymphocytes Percent Auto 14.4 % (20-40); Mean Corpuscular Volume 88.1 fL (80.0-98.0); Mean Platelet Volume 9.9 fL (9.4-12.4); Monocytes Percent Auto 12.3 % (2-11); Neutrophils Absolute Auto 5.3 x10*3/uL (2.0-8.3); Neutrophils Percent Auto 66.2 % (45-73); Platelet Count 273 X10*3/uL (160-400); Red Blood Count 5.14 X10*6/uL (4.60-5.80); Red Cell Distribution Width 12.6 % (11.0-16.0); White Blood Count 7.9 X10*3/uL (4.8-10.8)
[2024-11-26 10:43] LABS: Appearance Urine Clear; Color Urine Yellow; Glucose Urine UA Negative (Negative); Leukocyte Esterase Urine Negative (Negative); Nitrite Urine Negative (Negative); PH 6.5 (5.0-9.0); Urine Blood Negative (Negative); Urine Ketones Negative (Negative); Urine Protein Negative (Neg-Trace)
[2024-11-26 10:45] LABS: Alanine Aminotransferase 36 U/L (0-40); Albumin Level 4.7 g/dL (3.5-5.0); Alkaline Phosphatase 104 U/L (39-117); Anion Gap 12 (12-20); Aspartate Amino Transferase 26 U/L (5-37); Bilirubin Total 0.4 mg/dL (0.0-1.0); Blood Urea Nitrogen 15 mg/dL (9-16); Calcium 9.6 mg/dL (8.4-10.2); Carbon Dioxide 28 mmol/L (22-29); Chloride 104 mmol/L (96-108); Cholesterol 183 mg/dL (<200); Estimated Glomerular Filt Rate > 60; Glucose Fasting 103 mg/dL (60-99); HDL Cholesterol 47 mg/dL (>40); LDL Cholesterol Calculated 119 mg/dL (<100); Potassium 4.5 mmol/L (3.3-5.1); Sodium 139 mmol/L (135-145); Total Protein 8.6 g/dL (6.5-8.0); Triglycerides 89 mg/dL (<150)
[2024-11-26 10:52] LABS: TSH reflex Free T4 2.02 uIU/mL (0.32-4.0); Vitamin D 25-OH Total 47.3 ng/mL (>30)
[2024-11-26 11:06] LABS: HIV AB/AG Nonreactive (Nonreactive); HIV Num 1 0.04 S/CO (0.00-0.99); Syphilis Screen Nonreactive (Nonreactive)
== END 2024-11-26 08:45 | disposition home or self-care (01) ==
LOC: HO.HMGCLDS 08:44
DX: Z00.00 Encounter for general adult medical examination without abnormal findings (principal); Z11.3 Encounter for screening for infections with a predominantly sexual mode of transmission; Z13.220 Encounter for screening for lipoid disorders; Z13.29 Encounter for screening for other suspected endocrine disorder; Z13.9 Encounter for screening, unspecified; Z13.228 Encounter for screening for other metabolic disorders; Z13.0 Encounter for screening for diseases of the blood and blood-forming organs and certain disorders involving the immune mechanism
CPT/HCPCS: 36415; 80053; 80061; 81003; 82306; 84443; 85025; 86780; 87389

== ENCOUNTER 2024-11-28 14:25 | Outpatient (REF) | payer OTHER, SELFPAY ==
--- NOTE | ~2024-11-28 | US_ITS ---
EXAMINATION: US PELVIS LIMITED HISTORY: R10.32 - Left lower quadrant pain COMPARISON: There are no prior studies for comparison. TECHNIQUE: Sonographic examination of the left inguinal region was performed. FINDINGS: Multiple lymph nodes are identified demonstrate thin cortices and prominent fatty clair. No soft tissue mass or hernia is seen. US/US pelvic limited IMPRESSION: No sonographic abnormality is seen in the left inguinal region. Electronically signed by: Álvaro Schultz MD 12/01/2024 10:16 AM [facility]
--- OUTSIDE RECORDS SUMMARY | 2024-11-28 14:49 | XMS_ITS ---
Author Organization [facility] Address [address] [phone] Care Team Providers Care Occupational Hygienist Name Role Phone SAMANTHA TIDWELL Unavailable [phone] REASON FOR VISIT PrEP fu Social History Sex Assigned At : Social History Observation Description Sex Assigned At Male Encounters Encounter Location Date Provider Diagnosis [address] [phone] 09/27/2024 SAMANTHA TIDWELL Plan Of Treatment No Information Progress Notes * WILLISVanDOB:[birth year] (29 yo M)Acc No.[id number]:09/27/2024 Patient:?Van WILLIS :1995???Age:29 Y???Sex:Male Address:[address] [place] [address], [id number] * true * Date:? Generated for Antonioi teddy/Corinne/eTransmitting on:?11/28/2024 02:48 PM EST
== END 2024-11-28 14:26 | disposition home or self-care (01) ==
LOC: HO.US 14:25
DX: Z00.00 Encounter for general adult medical examination without abnormal findings (principal); Z23 Encounter for immunization; R10.32 Left lower quadrant pain; R10.2 Pelvic and perineal pain; F41.1 Generalized anxiety disorder; F41.9 Anxiety disorder, unspecified; E78.00 Pure hypercholesterolemia, unspecified; R73.01 Impaired fasting glucose; E66.9 Obesity, unspecified
CPT/HCPCS: 76857; 90471; 90656

== ENCOUNTER → 2024-11-28 14:28 | Outpatient (BNV) | payer OTHER, SELFPAY | PROVIDERS: Visit Provider Radiology Diagnostic Radiology | DX: R10.32 Left lower quadrant pain (principal) | CPT/HCPCS: 76857 ==

== ENCOUNTER 2024-11-28 15:51 | Outpatient (AMB) | payer OTHER, SELFPAY ==
--- OUTSIDE RECORDS SUMMARY | 2024-11-28 15:53 | XMS_ITS ---
Author Organization [facility] Address [address] [place] [address] [place], [place] [phone] Care Team Providers Care Treer Name Role Phone SAMANTHA TIDWELL [facility] [phone] Allergies Allergen (clinical drug ingredient) Drug/Non Drug Allergy documented on EMR Reaction Allergy Type Onset Date Status Penicillin Unknown Drug Allergy Active Results Component Value Reference Range Notes T pallidum Screening [place] -[id number] Reviewed date:09/30/2024 12:36:51 PM Interpretation:Negative Performing Lab:[facility], [address], [place], Phone - [phone], [facility] Notes/Report: T pallidum Antibodies Non Reactive Non Reactive HIV Ab/p24 Ag with Reflex-08 3935 Reviewed date:10/03/2024 04:39:48 PM Interpretation:Negative Performing Lab:[facility], [address], [place], Phone - [phone], Director - [facility] Notes/Report: HIV Ab/p24 Ag Screen Non Reactive Non Reactive HIV-1/HIV-2 antibodies and HIV-1 p24 antigen were NOT detected. There is no laboratory evidence of HIV infection. HIV Negative Chlamydia/GC Amplification-1 42876 Reviewed date:09/29/2024 08:21:49 PM Interpretation:Negative Performing Lab:[facility], [address], [place], Phone - [phone], Director - [facility] Notes/Report: Chlamydia trachomatis, KETAN Negative Negative Neisseria gonorrhoeae, KETAN Negative Negative Ct/GC KETAN, Rectal-964097 Reviewed date:09/30/2024 12:36:40 PM Interpretation:Negative Performing Lab:[facility], [address], [place], Phone - [phone], Director - [facility] Notes/Report: C. trachomatis, KETAN, Rectal Negative Negative N. gonorrhoeae, KETAN, Rectal Negative Negative Ct/GC KETAN, Pharyngeal-510424 Reviewed date:09/30/2024 12:36:31 PM Interpretation:Negative Performing Lab:[facility], [address], [address], [place], Phone - [phone], Director - [facility] Notes/Report: C. 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 Continue to use on-demand. Recommend fu every 3 months Spent 25 minutes doing the following: Chart Prep Obtaining/r eviewing history Counseling/ Coordinatio n of Care Documenting the visit Educating the patient Ordering medication/ test/proced ures Established Patient: 35005 20 Minutes 09/27/2024 Other problems related to lifestyle (ICD-10 - Z72.89) Spent 25 minutes doing the following: Chart Prep Obtaining/r eviewing history Counseling/ Coordinatio n of Care Documenting the visit Educating the patient Ordering medication/ test/proced ures Established Patient: 58650 20 Minutes 09/27/2024 HIV Screening (ICD-10 - Z11.4) Spent 25 minutes doing the following: Chart Prep Obtaining/r eviewing history Counseling/ Coordinatio n of Care Documenting the visit Educating the patient Ordering medication/ test/proced ures Established Patient: 91711 20 Minutes 09/27/2024 Other specified disorders of [...] patient Ordering medication/ test/proced ures Established Patient: 16353 20 Minutes Plan Of Treatment Treatment Notes [...] * Van WILLISDOB:[birth year] (29 yo M)Acc No.[id number]:09/27/2024 Patient:?Van WILLIS Provider:?SAMANTHA TIDWELL :1995???Age:29 Y???Sex:Male Paulo e:09/27/2024 Address:[address] [place], [place] [phone] Subjective: * Chief Complaints: * ???STI Screen [...] Educating the patient Ordering medication/test/procedures Established Patient: 45782 20 Minutes Plan: * Treatment: ? Value Reference Range ?T pallidum Antibodies Non Reactive N on Reactive - * This lab was reviewed by EFRAÍN WAITE on 09/30/2024 at 12:36 PM EST ?LAB: Chlamydia/GC Amplification-[id number] (Collection Date & Time - 09/27/2024 11:55 [...] at 20:21 PM EST ?LAB: Ct/GC KETAN, Rectal-334509 (Collection Date & Time - 09/27/2024 11:55 AM)* ? Value Reference Range ?C. trachomatis, KETAN, Rectal Negative Negative - * ?N. gonorrhoeae, KETAN, Rectal Negative Negative - * This lab was reviewed by EFRAÍN WAITE on 09/30/2024 at 12:36 PM EST ?LAB: Ct/GC KETAN, Pharyngeal-[id number] (Collection Date & Time - 09/27/2024 11:55 [...] 3 months??3.?HIV Screening?LAB: HIV Ab/p24 Ag with Reflex-241502 (Collection Date & Time - 09/27/2024 11:55 [...] fu) * Billing Information: * Visit Code:? 52974 Existing - Low Complexity (IN USE). * Procedure Codes:? * Sign off status: Completed true * Provider:BELEN TIDWELL Date:?09/27/2024 Generated for Oralia espinal/Corinne/Rey on:?11/28/2024 02:49 PM EST History and Physical Notes * [...]
--- OUTSIDE RECORDS SUMMARY | 2024-11-28 15:53 | XMS_ITS | Patient Health Record ---
Author Organization [facility] Address [address] [facility] [place], [place] [id number] Care Team Providers Care Color Printer Operator Name Role Phone SIMÓNTamie VALENTINE Unavailable [phone] SAMANTHA TIDWELL Unavailable [phone] David Thao Unavailable [phone] Allergies Allergen (clinical drug ingredient) Drug/Non Drug Allergy documented on EMR Reaction Allergy Type Onset Date Status Penicillin Unknown Drug Allergy Active Results Component Value Reference Range Notes HCV Antibody-[id number] Reviewed date:03/05/2024 01:23:44 PM Interpretation:Non-reactive Performing Lab:[facility], [address] [facility], Phone - [phone], Director - MDdry Notes/Report: Hep C Virus Ab Non Reactive Non Reactive HCV antibody alone does not differentiate between previously resolved infection and active infection. Equivocal and Reactive HCV antibody results should be followed up with an HCV RNA test to support the diagnosis of active HCV infection. HIV Ab/p24 Ag with Reflex-08 3935 Reviewed date:03/05/2024 01:23:26 PM Interpretation:Negative Performing Lab:[facility], [address] [facility], Phone - [phone], Director - MDJodry Notes/Report: HIV Ab/p24 Ag Screen Non Reactive Non Reactive HIV Negative HIV-1/HIV-2 antibodies and HIV-1 p24 antigen were NOT detected. There is no laboratory evidence of HIV infection. Trich vag by KETAN-[id number] Reviewed date:03/25/2024 09:58:16 AM Interpretation:Negative Performing Lab:[facility] [place], [address], [address], [place], Phone - [phone], Director - [facility] Notes/Report: Trich vag by KETAN Negative Negative Chlamydia/GC Amplification-1 [id number] Reviewed date:03/25/2024 09:58:08 AM Interpretation:Negative Performing Lab:[facility] [place], [address], [address], [place], Phone - [phone], Director - [facility] Notes/Report: Chlamydia trachomatis, KETAN Negative Negative Neisseria gonorrhoeae, KETAN Negative Negative HIV Ab/p24 Ag with Reflex-08 3935 Reviewed date:03/25/2024 09:58:26 AM Interpretation:Non-reactive Performing Lab:[facility] [place], [address], [address], [place], Phone - [phone], Director - [facility] Notes/Report: HIV Ab/p24 Ag Screen Non Reactive Non Reactive HIV-1/HIV-2 antibodies and HIV-1 p24 antigen were NOT detected. There is no laboratory evidence of HIV infection. HIV Negative T pallidum Screening Gaines -[id number] Reviewed date:03/25/2024 09:49:13 AM Interpretation:Non-reactive Performing Lab:[facility], [address] [place] [address], Phone - [phone], Director - [facility] Notes/Report: T pallidum Antibodies Non Reactive Non Reactive HCV Antibody-[id number] Reviewed date:02/28/2024 11:44:43 AM Interpretation:DUPLICATE/TNP Performing Lab:[facility] [place], [address], [address], [place], Phone - [phone], Director - [facility] Notes/Report: Hep C Virus Ab TNP Please refer to the following specimen for additional lab results. Please see [id number] for results. HCV antibody alone does not differentiate between previously resolved infection and active infection. Equivocal and Reactive HCV antibody results should be followed up with an HCV RNA test to support the diagnosis of active HCV infection. Request Problem TNP Please refer to the following specimen for additional lab results. TEST: [id number] HIV Ab/p24 Ag with Reflex [id number] HCV Antibody Please see [id number] for results. Ct/GC KETAN, Rectal-[id number] Reviewed date:02/25/2024 03:45:48 PM Interpretation:Negative Performing Lab:[facility] [place], [address], [address], [place], Phone - [phone], Director - [facility] Notes/Report: Test(s) 514908-E. trachomatis, KETAN, Rectal; 316974- N. gonorrhoeae, KETAN, Rectal was developed and its performance characteristics determined by [employer]. It has not been cleared or approved by the Food and Drug Administration. C. trachomatis, KETAN, Rectal Negative Negative N. gonorrhoeae, KETAN, Rectal Negative Negative Chlamydia/GC Amplification-1 15742 Reviewed date:02/25/2024 12:48:39 PM Interpretation:Negative Performing Lab:[facility], [address], [address], [place], Phone - [phone], Director - [facility] Notes/Report: Chlamydia trachomatis, KETAN Negative Negative Neisseria gonorrhoeae, KETAN Negative Negative HIV Ab/p24 Ag with Reflex-08 3935 Reviewed date:02/28/2024 11:44:22 AM Interpretation:DUPLICATE/TNP Performing Lab:[facility] [place], [address], [address], [place], Phone - [phone], Director - [facility] Notes/Report: HIV Ab/p24 Ag Screen TNP Please refer to the following specimen for additional lab results. Please see [id number] for results. T pallidum Screening Gaines -[id number] Reviewed date:02/28/2024 11:59:08 AM Interpretation:Non-reactive Performing Lab:[facility] [place], [address] [place] [address], Phone - [phone], Director - [facility] Notes/Report: Clinical Information:USED SERUM #[id number] T pallidum Antibodies Non Reactive Non Reactive Ct/GC KETAN, Pharyngeal-[id number] Reviewed date:09/30/2024 12:36:31 PM Interpretation:Negative Performing Lab:[facility] [place], [address], [address], [place], Phone - [phone], Director - [facility] Notes/Report: C. trachomatis, KETAN, Pharyn Negative Negative N. gonorrhoeae, KETAN, Pharyn Negative Negative Ct/GC KETAN, Rectal-[id number] Reviewed date:09/30/2024 12:36:40 PM Interpretation:Negative Performing Lab:[facility] [place], [address], [address], [place], Phone - [phone], Director - [facility] Notes/Report: C. trachomatis, KETAN, Rectal Negative Negative N. gonorrhoeae, KETAN, Rectal Negative Negative Chlamydia/GC Amplification-1 77417 Reviewed date:09/29/2024 08:21:49 PM Interpretation:Negative Performing Lab:[facility] [place], [address], [address], [place], Phone - [phone], Director - [facility] Notes/Report: Chlamydia trachomatis, KETAN Negative Negative Neisseria gonorrhoeae, KETAN Negative Negative HIV Ab/p24 Ag with Reflex-08 3935 Reviewed date:10/03/2024 04:39:48 PM Interpretation:Negative Performing Lab:[facility] [place], [address], [address], [place], Phone - [phone], Director - [facility] Notes/Report: HIV Ab/p24 Ag Screen Non Reactive Non Reactive HIV-1/HIV-2 antibodies and HIV-1 p24 antigen were NOT detected. There is no laboratory evidence of HIV infection. HIV Negative T pallidum Screening Gaines -[id number] Reviewed date:09/30/2024 12:36:51 PM Interpretation:Negative Performing Lab:[facility] [place], [address], [address], [place], Phone - [phone], Director - [facility] Notes/Report: T pallidum Antibodies Non Reactive Non Reactive Ct/GC KETAN, Rectal-[id number] Reviewed date:04/01/2024 06:11:28 PM Interpretation:Negative Performing Lab:[facility] [place], [address], [address], [place], Phone - [phone], Director - [facility] Notes/Report: C. trachomatis, KETAN, Rectal Negative Negative N. gonorrhoeae, KETAN, Rectal Negative Negative Chlamydia/GC Amplification-1 91776 Reviewed date:04/01/2024 06:11:44 PM Interpretation:Negative Performing Lab:[facility] [place], [address], [address], [place], Phone - [phone], Director - [facility] Notes/Report: Chlamydia trachomatis, KETAN Negative Negative Neisseria gonorrhoeae, KETAN Negative Negative HIV Ab/p24 Ag with Reflex-08 3935 Reviewed date:04/01/2024 10:32:35 AM Interpretation:Negative Performing Lab:[facility], [address] [place] [address], Phone - [phone], [facility]/Report: HIV Ab/p24 Ag Screen Non Reactive Non Reactive HIV Negative HIV-1/HIV-2 antibodies and HIV-1 p24 antigen were NOT detected. There is no laboratory evidence of HIV infection. T pallidum Screening Gaines -961901 Reviewed date:04/01/2024 10:30:43 AM Interpretation:Negative Performing Lab:[facility] [place], [address] [facility], Phone - [phone], Director - [facility] Notes/Report: T pallidum Antibodies Non Reactive Non Reactive Hepatitis B Surf Ab Quant-00 6530 Reviewed date:04/01/2024 12:28:49 PM Interpretation:Not Immune Performing Lab:[facility] [place], [address] [employer], [address], [place], Phone - [phone], Director - [facility] Notes/Report: Hepatitis B Surf Ab Quant <3.5 Immunity>9.9 mI U/mL Status of Immunity Anti-HBs Level Inconsistent with Immunity 0.0 - 9.9 Consistent with Immunity >9.9 Effective April 07, 2024 the reference interval will be changing to: Immunity >10 HBsAg Screen-331542 Reviewed date:04/01/2024 12:26:37 PM Interpretation:Negative Performing Lab:[facility] [place], [address] [employer], [address], [place], Phone - [phone], Director - [facility] Notes/Report: HBsAg Screen Negative Negative Creatinine-344611 Reviewed date:04/01/2024 10:32:28 AM Interpretation:Creatinine 0.65/YiMc033 ml/min Performing Lab:[facility] [place], [address] [facility], Phone - [phone], Director - [facility] Notes/Report: Creatinine 0.65 0.76-1.27 mg/dL eGFR 132 >59 mL/min/1.73 Reason For Referral No Information Medications Medication [...] Status Risk Notes Problem Disorder of penis (50673881) 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 Vital Signs Blood pressure diastolic 72 mm Hg 03/31/2024 Height 67 in 03/31/2024 Blood pressure systolic 128 mm Hg 03/31/2024 Weight 146.8 lbs 03/31/2024 BMI 22.99 kg/m2 03/31/2024 Encounters Encounter Location Date Provider Diagnosis [address] [id number] 02/21/2024 SAMANTHA TIDWELL Encounter for screen ing for infections with a predominantly sexual mode of transmission Z11.3 ; Counseling, unspecified Z71.9 ; Other problems related to lifestyle Z72.89 ; Encounter for screening for human immunodeficiency virus [HIV] Z11.4 and Screening for other viral diseases Z11.[address] [id number] 03/13/2024 SAMANTHA TIDWELL Encounter for screen ing for infections with a predominantly sexual mode of transmission Z11.3 ; Counseling, unspecified Z71.9 ; Other problems related to lifestyle Z72.89 and Encounter for screening for human immunodeficiency virus [HIV] Z11.[address] [id number] 03/31/2024 VALENTINE CARRASCO Encounter for screen ing for infections with a predominantly sexual mode of transmission Z11.3 ; Counseling, unspecified Z71.9 ; Contact with and (suspected) exposure to other viral communicable diseases Z20.828 ; Encounter for HIV pre-exposure prophylaxis Z29.81 ; Encounter for other specified prophylactic measures Z29.89 ; Encounter for screening for human immunodeficiency virus [HIV] Z11.4 ; Other shelter (current) drug therapy Z79.899 ; Problem related to lifestyle, unspecified Z72.9 and Encounter for screening for other viral diseases Z11.59 [facility] [address] [place], [place] [id number] 09/27/2024 SAMANTHA TIDWELL Encounter for screen ing for infections with a predominantly sexual mode of transmission Z11.3 ; Counseling, unspecified Z71.9 ; Other problems related to lifestyle Z72.89 ; HIV Screening Z11.4 and Other specified disorders [facility]48.[facility] [id number] [facility]/01/[facility]24 VALENTINE CARRASCO [facility] [address] [id number] 09/27/2024 SAMANTHA TIDWELL Assessments Encounter Date Diagnosis [...] STI screening recommendations and available testing through [employer]. Testing ordered as noted per patient risks and preference. Encouraged safe sex practices. Advised to call for evaluation if any symptoms arise. Reviewed method of communicating results to patient. Spent ___ minutes doing the following: Chart Prep Obtaining/revie wing history Performing medically necessary exam Counseling/Coor dination of Care Documenting the visit Educating the patient Ordering medication/test /procedures Communication of test results Established Patient: 49723 30 Minutes 03/31/2024 Counseling, unspecified (ICD-10 - Z71.9) Spent ___ minutes doing the following: Chart Prep Obtaining/revie wing history Performing medically necessary exam Counseling/Coor dination of Care Documenting the visit Educating the patient Ordering medication/test /procedures Communication of test results Established Patient: 84853 30 Minutes 09/27/2024 Encounter for screening for [...] the patient Ordering medication/test /procedures Established Patient: 79199 20 Minutes 09/27/2024 Counseling, unspecified (ICD-10 - Z71.9) Clt not in need of any refills on Truvada. Continue to use on-demand. Recommend fu every 3 months Spent 25 minutes doing the following: Chart Prep Obtaining/revie wing history Counseling/Coor dination of Care Documenting the visit Educating the patient Ordering medication/test /procedures Established Patient: 00187 20 Minutes 09/27/2024 Other problems related to lifestyle (ICD-10 - Z72.89) Spent 25 minutes doing the following: Chart Prep Obtaining/revie wing history Counseling/Coor dination of Care Documenting the visit Educating the patient Ordering medication/test /procedures Established Patient: 48672 20 Minutes 03/31/2024 Contact with and (suspected) exposure to other viral communicable diseases (ICD-10 - Z20.828) Spent ___ minutes doing the following: Chart Prep Obtaining/revie wing history Performing medically necessary exam Counseling/Coor dination of Care Documenting the visit Educating the patient Ordering medication/test /procedures Communication of test results Established Patient: 91612 30 Minutes 03/13/2024 Other problems related to [...] medication: The Ready, Set, PrEP program and [place] HIV Drug Assistance Program (HDAP) which makes PrEP available at no cost to those who qualify. [employer] offers a program to help patients pay for PrEP shots. Spent ___ minutes doing the following: Chart Prep Obtaining/revie wing history Performing medically necessary exam Counseling/Coor dination of Care Documenting the visit Educating the patient Ordering medication/test /procedures Communication of test results Established Patient: 04666 30 Minutes 09/27/2024 HIV Screening (ICD-10 - Z11.4) Spent 25 minutes doing the following: Chart Prep Obtaining/revie wing history Counseling/Coor dination of Care Documenting the visit Educating the patient Ordering medication/test /procedures Established Patient: 16874 20 Minutes 09/27/2024 Other specified disorders of [...] the patient Ordering medication/test /procedures Established Patient: 83179 20 Minutes 03/31/2024 Encounter for other specified [...] /procedures Communication of test results Established Patient: 30951 30 Minutes 02/21/2024 Screening for other viral [...] /procedures Communication of test results Established Patient: 87755 30 Minutes 03/31/2024 Other termite inspector (current) drug therapy (ICD-10 - Z79.899) Spent ___ minutes doing the following: Chart Prep Obtaining/revie wing history Performing medically necessary exam Counseling/Coor dination of Care Documenting the visit Educating the patient Ordering medication/test /procedures Communication of test results Established Patient: 89497 30 Minutes 03/31/2024 Problem related to lifestyle, unspecified (ICD-10 - Z72.9) Spent ___ minutes doing the following: Chart Prep Obtaining/revie wing history Performing medically necessary exam Counseling/Coor dination of Care Documenting the visit Educating the patient Ordering medication/test /procedures Communication of test results Established Patient: 18221 30 Minutes 03/31/2024 Encounter for screening for other viral diseases (ICD-10 - Z11.59) Spent ___ minutes doing the following: Chart Prep Obtaining/revie wing history Performing medically necessary exam Counseling/Coor dination of Care Documenting the visit Educating the patient Ordering medication/test /procedures Communication of test results Established Patient: 97761 30 Minutes Plan Of Treatment No Information Insurance Providers Payer Name Payer Address Payer Phone Subscriber Number Group Number Insured Name Patient Relationship to Insured Coverage Start Date Coverage End Date [facility] [address] [place], [place] [id number] Van Londono Self - patient is the insured Medical (General) History Medical History History ICD Code Depression Hep B, not immune
--- OUTSIDE RECORDS SUMMARY | 2024-11-28 15:53 | XMS_ITS ---
Author Organization [facility] Address [address] [place] [id number] Care Team Providers Care Feather Maker Name Role Phone SAMANTHA TIDWELL Unavailable [phone] REASON FOR VISIT PrEP F/U Social History Sex Assigned At : Social History Observation Description Sex Assigned At Male Encounters Encounter Location Date Provider Diagnosis [facility] [address] [place] [address] [place], [place] [phone] 07/17/2024 SAMANTHA TIDWELL Plan Of Treatment No Information Progress Notes * Van WILLISDOB:[birth year] (29 yo M)Acc No.[id number]:07/17/2024 Progress Notes Patient:?Van WILLIS Provider:BELEN TIDWELL :1995???Age:29 Y???Sex:Male Paulo e:07/17/2024 Address:[address] [place], [place] [id number] Subjective: * Chief Complaints: * ???1. PrEP F/U. * Medical History:? Objective: * Vitals:? Assessment: Plan: * Treatment: * Billing Information: * Visit Code:? * Procedure Codes:? * Electronic signature of ELENA TIDWELL CNM on 11/28/2024 at 02:49 PM EST Sign off status: Pending * Provider:BELEN TIDWELL Date:?07/17/2024 Generated for Oralia espinal/Corinne/eTdimitrysmitting on:?11/28/2024 02:49 PM EST
[2024-11-28 15:57] VITALS: BP 128/68; PULSE 80; O2SAT 97; BMI 27.6
--- NOTE | 2024-11-28 15:57 | A.OFFPC_ITS ---
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 Required: No Accompanied by: Self / Same As Patient Allergies Penicillins [PCN] Allergy (Verified 11/28/24 16:22) Rash Medication List - Last Reconciled 11/28/24 by KRISTIE Faith desvenlafaxine ER 50 mg PO DAILY Tobacco use date assessed: 11/14/24 Dental Screening Dental Screen Date: 11/14/24 HPI pe HPI Details Dentist: no-will make appt Eye:none in awhile Snellen: Right: Left: Corrected vision: STI screening:yes Colonoscopy:n/a Pap Smer:n/a PHQ-9: Flu: in office today COVID: x2 and one booster Tdap: up to date Diet: regular Exercise: gym three times a week/ treadmill and weight lifting The patient is a 29 year old male presenting for annual physical preventive guidelines and recent labs reviewed [facility] Medical History Elbow fracture, left Anxiety Panic attacks Patellar dislocation Family History Other Hypertension Social History Housing: Apartment Patient Tobacco Use Status: Never used Tobacco e-Cigarette/Vaping Use: Currently Using service: No Current occupational status: employed Current occupational exposures/hazards: No Cognitive needs: No Hearing needs: No Vision needs: No Questionnaire Thrive Questionnaire Date Thrive assessed: 11/14/24 I am a: Patient What is your living situation today?: I have a steady place to live Within the past 12 months, did the food you bought not last and you didn't have the money to get more?: Never true Within the past 12 months, did you worry whether your food would run out before you got money to buy more?: Never true Do you have trouble paying for medicines?: No Do you have trouble getting transportation to medical appointments?: No Do you have trouble paying your heating and electricity bill?: Yes Do you have trouble taking care of your child, family member or friend?: No Do you have trouble with day-to-day activities such as bathing, preparing meals, shopping, managing finances, etc.?: No Are you currently unemployed and looking for a job?: No Are you interested in more education?: No Please select the resources that you would like help with: None Currently or been in a relationship where the following occur: No concerns reported THRIVE Score: 1 VILMA-7 AMB Questionnaire VILMA-7 Date VILMA - 7 assessed: 11/14/24 Source: Developed by Drs. Álvaro Sanchez, Rachael Beltre, Danilo Anderson and colleagues, with an educational sylvia from [employer]. Physical exam (Primary Care) Vital Signs: Last Vital Signs Pulse 80 11/28/24 15:57 BP 128/68 11/28/24 15:57 Pulse Ox 97 11/28/24 15:57 Oxygen Delivery Method Room Air 11/28/24 15:57 BMI result Body Mass Index 27.6 Tobacco/Smoking Status: Tobacco use Status Tobacco use date assessed 11/14/24 11/28/24 16:00 Patient Tobacco Use Status Never used Tobacco 11/28/24 16:00 e-Cigarette/Vaping Use Currently Using 11/28/24 16:00 Thrive Assessment: Date of Thrive Assessment Date Thrive assessed 11/14/24 11/28/24 16:00 Currently or been in a relationship where the following occur: No concerns reported Office Procedures Flu Questionnaire Does the patient have a severe egg allergy?: No Does the patient have severe life threatening allergies?: No Does the patient have a fever or illness today?: No Has the patient ever had Guillain-Salineno Syndrome?: No Has the patient ever had any past reaction to a flu shot?: No Immunizations Fluarix Triv 5778-1406 (PF) 45 mcg (15 mcg x 3)/0.5 mL IM syringe Performing Provider: KRISTIE Faith [facility] [facility] [place] [facility] Administered by: DELROY Milligan on 11/28/24 16:04 Dose Route Admin Location Dispensed Lot Number Expiration Date [facility] [employer] 0.5 mL IM Left Deltoid 0.5 mL [id number] 04/06/25 27552-735-31 Adomo VIS Given Date VIS Provided VIS Publication Date 11/28/24 Single Vaccine 21 Eligibility Eligibility Date Funding Source Not VFC Eligible 11/28/24 Private Results Reviewed Results Reviewed: Laboratory Tests 11/26/24 08:48 WBC 7.9 RBC 5.14 Hgb 15.4 Hct 45.3 Plt Count 273 Sodium 139 Potassium 4.5 Chloride 104 Carbon Dioxide 28 BUN 15 Creatinine 0.80 Estimated GFR > 60 Fasting Glucose 103 H AST 26 ALT 36 Alkaline Phosphatase 104 Triglycerides 89 Cholesterol 183 LDL Cholesterol, Calc 119 H HDL Cholesterol 47 25-OH Vitamin D Total 47.3 TSH 2.02 Urine Color Yellow Urine Appearance Clear Urine pH 6.5 Ur Specific [place] 1.020 Urine Protein Negative Urine Glucose (UA) Negative Urine Ketones Negative Urine Blood Negative Urine Nitrite Negative Ur Leukocyte Esterase Negative T.pallidum Ab (EIA) Nonreactive HIV 1&2 Ab/P24 Ag 4thGn Nonreactive Coding Level of Care Code Est Pt Prev Care 18-39y(72069) Diagnoses Annual physical exam Z00.00 Anxiety F41.9 Panic attacks F41.0 Suprapubic pressure R10.2 Left inguinal pain R10.32 Laterality: left Elevated LDL cholesterol level E78.00 IFG (impaired fasting glucose) R73.01 Obesity, unspecified class, unspecified obesity type, unspecified whether serious comorbidity present E66.9 Obesity type: unspecified obesity type Obesity classification: unspecified obesity classification Serious obesity comorbidity presence: unspecified whether serious comorbidity present Time Spent (min) 29 Assessment & Plan Assessment & Plan (1) Annual physical exam: Code(s): Z00.00 - Encounter for general adult medical examination without abnormal findi ngs Category: Medical Plan: The patient is here for annual physical examination Reviewed preventative guidelines, recent labs reviewed with patient (2) Anxiety: Code(s): F41.9 - Anxiety disorder, unspecified Category: Medical Plan: Continue descenlafaxine ER 50 mg daily denies si/hi (3) Panic attacks: Code(s): F41.0 - Panic disorder [episodic paroxysmal anxiety] Category: Medical Plan: same as above (4) Suprapubic pressure: Code(s): R10.2 - Pelvic and perineal pain Category: Medical Plan: STD screenig and urinalysis were negative, and a pelvic ultrasound was completed-awaiting for radiology read The patient is denying symptoms in office today (5) Groin pain: Code(s): R10.30 - Lower abdominal pain, unspecified Category: Medical Qualifiers: Laterality: left Qualified Code(s): R10.32 - Left lower quadrant pain Plan: Awaiting radiology read on US (6) Elevated LDL cholesterol level: Code(s): E78.00 - Pure hypercholesterolemia, unspecified Category: Medical Plan: LDL 119- slightly elevated, discussed with patient about cutting foods in high cholesterol and to increase activity as tolerated (7) IFG (impaired fasting glucose): Code(s): R73.01 - Impaired fasting glucose Category: Medical Plan: reinforced low sugar/carbohydrates in diet (8) Obesity: Code(s): E66.9 - Obesity, unspecified Category: Medical Qualifiers: Obesity type: unspecified obesity type Obesity classification: unspecified obesity classification Serious obesity comorbidity presence: unspecified whether serious comorbidity present Qualified Code(s): E66.9 - Obesity, unspecified Plan: Diet/exercise discussed in detail Encouraged to exercise for at least 30 minutes a day/5 days a week Healthy eating discussed. Encouraged to eat fruits/vegetables, protein- fish/baked chicken, and to avoid salty/fried foods, sweets, caffeine and carbohydrates. Encouraged to increase water intake 6-8 glasses a day Orders: Orders Influenza [id number] Immunization 11/28/24 Z23 - Encounter for immunization Complete Blood Count Auto Diff 1 Year F41.0 - Panic disorder [episodic paroxysmal anxiety], F41.9 - Anxiety disorder, unspecified, Z00.00 - Encounter for general adult medical examination without abnormal findings Lipid Panel 1 Year F41.0 - Panic disorder [episodic paroxysmal anxiety], F41.9 - Anxiety disorder, unspecified, Z00.00 - Encounter for general adult medical examination without abnormal findings TSH reflex Free T4 1 Year F41.0 - Panic disorder [episodic paroxysmal anxiety], F41.9 - Anxiety disorder, unspecified, Z00.00 - Encounter for general adult medical examination without abnormal findings Vitamin D 25-OH Total 1 Year F41.0 - Panic disorder [episodic paroxysmal anxiety], F41.9 - Anxiety disorder, unspecified, Z00.00 - Encounter for general adult medical examination without abnormal findings Comprehensive [place]. Panel Fast 1 Year F41.0 - Panic disorder [episodic paroxysmal anxiety], F41.9 - Anxiety disorder, unspecified, Z00.00 - Encounter for general adult medical examination without abnormal findings UA CC w/rflx Micro + Cult 1 Year F41.0 - Panic disorder [episodic paroxysmal anxiety], F41.9 - Anxiety disorder, unspecified, Z00.00 - Encounter for general adult medical examination without abnormal findings Glucose Fasting 1 Year F41.0 - Panic disorder [episodic paroxysmal anxiety], F41.9 - Anxiety disorder, unspecified, Z00.00 - Encounter for general adult medical examination without abnormal findings Referrals Counseling Referral F41.9 - Anxiety disorder, unspecified
== END 2024-11-28 16:54 | disposition home or self-care (01) ==
DX: Z23 Encounter for immunization (principal)

== ENCOUNTER 2025-07-23 13:52 | Outpatient (AMB) | payer OTHER, SELFPAY ==
--- OUTSIDE RECORDS SUMMARY | 2024-07-01 09:15 | XMS_ITS ---
Author Organization [facility] Address [address] [place] [address] Care Team Providers Care Town Administrator Name Role Phone VALENTINE CONDE Unavailable [phone] REASON FOR VISIT PrEP F/U Social History Sex Assigned At : Social History Observation Description Sex Assigned At Male Encounters Encounter Location Date Provider Diagnosis [facility] [address] [place] [address] [place] [id number] 07/01/2024 VALENTINE CONDE Plan Of Treatment Next Appt Details Provider Name:SAMANTHA TIDWELL, 01:15:00 PM, [address] [place] [address], [address], [place], [place], [id number], Progress Notes * LAZAROVanDOB:[birth year] (30 yo M)Acc No.[id number]:07/01/2024 Progress Notes Patient: Van Carroll Provider: Ina Conde NP :1995 A ge:29 Y S ex:Male Date:07/01/2024 Address:[address] [place] [address] [place] [id number] Subjective: * Chief Complaints: * P rEP F/U Billing Information: * Procedure Codes: * Electronic signature of ERIC CONDE NP on 07/23/2025 at 05:42 PM EDT Sign off status: Pending * Provider: Ina Conde NP Date: 0 07/01/2024 Generated for Printi ng/Faxing/eTransmitting on: 1 05:42 PM EDT
--- NOTE | 2025-07-23 14:10 | A.OFFPC_ITS ---
Vital Signs 07/23/25 14:11 Height 5 ft 7 in Weight 175 lb 2 oz BMI 27.4 BP 110/78 Blood Pressure Location Lt brachial Position Sitting Pulse 89 Pulse Source Pulse Oximeter Temp 97.1 F Temp Source Temporal Artery Scan Pulse Oximetry (%) 96 Oxygen Delivery Method Room Air Intake Visit Reasons: albuterol inhaler, breathing issues Intake Note: Patient is here to follow up on Breathing issues. Office Spec Required: No Physical Medicine Specialist: Not Required per policy Accompanied by: Self / Same As Patient Allergies Penicillins (PCN) Allergy (Verified 07/23/25 14:23) Rash Medication List - Last Reconciled 07/23/25 by Bogdan Del Valle PA-C desvenlafaxine ER 50 mg PO DAILY Tobacco use date assessed: 07/23/25 Dental Screening Dental Screen Date: 11/14/24 HPI albuterol inhaler, breathing issues HPI Details The patient is a 30-year-old male presenting with asthma exacerbation. 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 Recently, he experienced labored breathing, ranjan to breathing through a straw, and used an old inhaler which provided relief. He attributes the exacerbation to possible weather changes or dust exposure, as he is particularly sensitive to dust from stored clothing. [facility] Medical History Elbow fracture, left Anxiety Panic attacks Patellar dislocation Surgical History History of open treatment of fracture of patella Family History Other Hypertension Social History Housing: Apartment Alcohol intake: current Alcohol intake frequency: a few times a week Patient Tobacco Use Status: Never used Tobacco e-Cigarette/Vaping Use: Currently Using Frequency of e-Cigarette/Vaping Use: Daily Second Hand Smoke Exposure: No service: No Current occupational status: employed Current occupational exposures/hazards: No Cognitive needs: No Hearing needs: No Vision needs: No Questionnaire Thrive Questionnaire Date Thrive assessed: 11/14/24 I am a: Patient What is your living situation today?: I have a steady place to live Within the past 12 months, did the food you bought not last and you didn't have the money to get more?: Never true Within the past 12 months, did you worry whether your food would run out before you got money to buy more?: Never true Do you have trouble paying for medicines?: No Do you have trouble getting transportation to medical appointments?: No Do you have trouble paying your heating and electricity bill?: Yes Do you have trouble taking care of your child, family member or friend?: No Do you have trouble with day-to-day activities such as bathing, preparing meals, shopping, managing finances, etc.?: No Are you currently unemployed and looking for a job?: No Are you interested in more education?: No Please select the resources that you would like help with: None Currently or been in a relationship where the following occur: No concerns reported THRIVE Score: 1 VILMA-7 AMB Questionnaire VILMA-7 Date VILMA - 7 assessed: 11/14/24 Source: Developed by Drs. Álvaro Sanchez, Rachael Beltre, Danilo Anderson and colleagues, with an educational sylvia from [employer]. Review of Systems Const Denies headache(s) Eyes Denies loss of vision ENT Denies vertigo, Denies dizziness, Denies headache(s) and Denies sore throat Card Denies chest pain, Denies leg edema and Denies lightheadedness Resp Denies cough, Denies hemoptysis and Denies wheezing GI Denies abdominal pain, Denies melena, Denies constipation, Denies diarrhea and Denies vomiting Denies dysuria, Denies urinary frequency and Denies urinary urgency Musc Denies arthralgias, Denies joint swelling, Denies numbness and Denies tingling Neuro Denies Abnormal speech present, Denies behavioral changes, Denies vertigo, Denies dizziness, Denies headache(s), Denies loss of vision, Denies memory loss, Denies numbness and Denies tingling Psych Denies anxiety, Denies behavioral changes, Denies depression, Denies memory loss and Denies panic attacks Rod/Lymph Denies easy bleeding and Denies easy bruising Aller/Immun Denies wheezing Physical exam (Primary Care) Vital Signs: Last Vital Signs Temp 97.1 F 07/23/25 14:11 Pulse 89 07/23/25 14:11 BP 110/78 07/23/25 14:11 Pulse Ox 96 07/23/25 14:11 Oxygen Delivery Method Room Air 07/23/25 14:11 BMI result Body Mass Index 27.4 Tobacco/Smoking Status: Tobacco use Status Tobacco use date assessed 07/23/25 07/23/25 14:16 Patient Tobacco Use Status Never used Tobacco 07/23/25 14:16 e-Cigarette/Vaping Use Currently Using 07/23/25 14:16 Thrive Assessment: Date of Thrive Assessment Date Thrive assessed 11/14/24 07/23/25 14:16 Currently or been in a relationship where the following occur: No concerns reported Const General: healthy appearing, no acute distress, alert and awake Nutritional Appearance: well nourished Orientation/consciousness: oriented to person, oriented to place and oriented to time HENMT Ears: TM's normal bilaterally General nose exam: Normal nasal mucous membranes and turbinates present Eyes Conjunctivae: conjunctivae normal Sclerae: sclerae normal Pupils: Equal, round and reactive pupils present Neck Neck: Yes no lymphadenopathy and Yes no JVD Thyroid: Thyroid normal Carotids: no bruits Resp Effort & Inspection: normal respiratory effort and not tachypneic Auscultation: no crackles, no rales, no rhonchi and no wheezes Cardio Rate: regular rate Rhythm: regular rhythm Heart sounds: no murmurs and normal S1 and S2 GI Palpation (GI): Soft to palpation, nontender, no hepatomegaly and no splenomegaly Auscultation: normal bowel sounds Skin General skin exam: no rashes or lesions noted and dry skin Neuro General: oriented to person, oriented to place and oriented to time Cranial nerves: Yes Equal, round and reactive pupils present Speech: No Abnormal speech present Gait exam (Neuro): Normal gait present Motor exam (neuro): no tremor noted Extrem Right upper extremity: full ROM Left upper extremity: full ROM Right lower extremity: full ROM; no edema Left lower extremity: full ROM; no edema Psych Mental Status: mental status grossly normal Speech and movement: Normal speech and movement present Affect: normal affect Attitude: cooperative Thought process: Normal thought process present Coding Level of Care Code Est Pt Level 3 (22618) Diagnoses Mild intermittent asthma without complication J45.20 Asthma severity: mild Asthma persistence: intermittent Asthma complication type: uncomplicated Assessment & Plan Assessment & Plan (1) Asthma: Code(s): J45.909 - Unspecified asthma, uncomplicated Category: Medical Qualifiers: Asthma severity: mild Asthma persistence: intermittent Asthma complication type: uncomplicated Qualified Code(s): J45.20 - Mild intermittent asthma, uncomplicated Plan: Does not appear to be in any acute respiratory distress at this time.. Will supply patient with an albuterol inhaler to use in case of an emergency asthma attack. Medications: New albuterol sulfate 90 mcg/actuation (Ventolin HFA) 1 inh inhalation QID 8.5 grams 2RF 30 days J45.20 - Mild intermittent asthma, uncomplicated
[2025-07-23 14:11] VITALS: BP 110/78; PULSE 89; TEMP 36.2; O2SAT 96; BMI 27.4
--- OUTSIDE RECORDS SUMMARY | 2025-07-23 17:42 | XMS_ITS | Patient Health Record ---
Author Organization [facility] Address [address] [place] [address] [address] [place] [address] Care Team Providers Care Stitcher Set Up Operator Automatic Name Role Phone NICOLAS PHILLIPS Unavailable [phone] SELF, REFERRAL Unavailable Unavailable Allergies Allergen (clinical drug ingredient) Drug/Non Drug Allergy documented on EMR Reaction Allergy Type Onset Date Status PENICILLIN (uncoded) RASH Allergy Active Reason For Referral No Information Medications Medication SIG (Take, Route, Frequency, Duration) Notes Start Date End Date Status Vitamin C Gummies Ac tive Zinc 22.5 MG as directed Orally Active Fish Oil 1000 MG 1 capsule Orally Onc e a day Active Vitamin D (Ergocalciferol) 1.25 MG (38921 UT) Oral; Duration: 56 Active Melatonin 10 MG as directed Orally Active hydrOXYzine HCl 50 MG TAKE 1 TABLET BY M OUTH 3 TIMES DAILY NEEDED FOR ANXIETY. Oral PRN; Duration: 10 Not-Taking Sertraline HCl 25 MG TAKE 1 TABLET BY MO UTH EVERY DAY Oral; Duration: 30 Active FLUoxetine HCl 10 MG Oral; Duration: 90 Not-Taking Social History Tobacco Use: Social History Observation Description Date Details (start date - stop date) Never Smoker NA - NA Tobacco Use/Smoking Question Answer Notes Are you a nonsmoker Alcohol Screen (Audit-C) Question Answer Notes Did you have a drink contain ing alcohol in the past year? Yes How many drinks did you have on a typical day when you were drinking in the past year? 1 or 2 drinks (0 point) How often did you have a dri nk containing alcohol in the past year? 4 or more times a week (4 points) Problems Problem Type SNOMED Code ICD Code Onset Dates Problem Status W/U Status Risk Notes Problem Tension-type headache (374258638) Tension type headache (G44.209) Active confirmed Plan Of Treatment Pending Test Test Name Order Date MRI : Brain without Contrast 11/16/2021 Insurance Providers Payer Name Payer Address Payer Phone Subscriber Number Group Number Insured Name Patient Relationship to Insured Coverage Start Date Coverage End Date [facility] [address] [place] [address] [id number] Bry Van Self - patient is the insured Medical (General) History Medical History History ICD Code abnormal liver function tests: No alzheimers disease: No aneurysm: No anemia: No anxiety: Yes aphasia: No arthritis: No atrial fibrillation: No autoimmune disorder: No bells palsy: No benign positional vertigo: No bleeding problems: No borderline personality disorder: No carotid artery stenosis: No carpal tunnel: No cerebral aneurysm: No congestive heart failure: No deep vein thrombosis: No dementia: No diabetes mellitus: No epilepsy: No febrile seizure: No fibromyalgia: No folic acid deficiency: No herniated disc: No hypertension: No headache: Yes kidney stones: No lumbar disc disease: No lower back pain: No lupus: No menieres disease: No meningioma: No migraine headaches: No myasthenia gravis: No myocardial infarction: No neck pain: No neuropathy: No pacemaker: No parkinsons disease: No restless leg syndrome: No sciatica: No seizures: No shingles: No sleep apnea: No stroke: No TIA: No vertigo: No vitamin B12 deficiency: No Surgical History Surgery Date(Month/Year) LEFT PATELLA 2011 Hospitalization History Reason Date(Month/Year) ER for numbness and tingling of the legs 10/2021
--- OUTSIDE RECORDS SUMMARY | 2025-07-23 17:43 | XMS_ITS | Patient Health Record ---
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 Notes/Report: T pallidum Antibodies Non Reactive Non Reactive HIV Ab/p24 Ag with Reflex-08 [id number] Reviewed date:10/03/2024 04:39:48 PM Interpretation:Negative Performing Lab:[facility] [place], [address], [address], [place], Phone - [phone], Director - [facility] Notes/Report: HIV Ab/p24 Ag Screen Non Reactive Non Reactive HIV-1/HIV-2 antibodies and HIV-1 p24 antigen were NOT detected. There is no laboratory evidence of HIV infection. HIV Negative Chlamydia/GC Amplification-1 [id number] Reviewed date:09/29/2024 08:21:49 PM Interpretation:Negative Performing Lab:[facility] [place], [address], [address], [place], Phone - [phone], Director - [facility] Notes/Report: Chlamydia trachomatis, KETAN Negative Negative Neisseria gonorrhoeae, KETAN Negative Negative Ct/GC KETAN, Rectal-[id number] Reviewed date:09/30/2024 12:36:40 PM Interpretation:Negative Performing Lab:[facility] [place], [address], [address], [place], Phone - [phone], Director - [facility] Notes/Report: C. trachomatis, KETAN, Rectal Negative Negative N. gonorrhoeae, KETAN, Rectal Negative Negative Ct/GC KETAN, Pharyngeal-[id number] Reviewed date:09/30/2024 12:36:31 PM Interpretation:Negative Performing Lab:[facility] [place], [address], [address], [place], Phone - [phone], Director - [facility] Notes/Report: C. trachomatis, KETAN, Pharyn Negative Negative N. gonorrhoeae, KETAN, Pharyn Negative Negative Reason For Referral No Information Medications Medication SIG (Take, Route, Frequency, Duration) Notes Start Date End Date Status Doxycycline Monohydrate 100 MG Tablet 2 tablet Orally Taken as soon as possible after sex, ideally within 24 hours and no later than 72 hours after sex. No more than 200 mg should be taken within a 24-hour period.; Duration: 15 days 03/31/2024 Not-Taking/PRN Desvenlafaxine Succinate Active Melatonin Active Emtricitabine-Tenofovir DF 200-300 MG Tablet TAKE TWO TABLETS 2-24 HOURS BEFORE SEX, THEN ONE PILL 24 HOURS AFTER THE FIRST DOSE, AND ONE PILL 48 HOURS AFTER THE FIRST DOSE Orally Once a day; Duration: 90 days Active Social History Sex Assigned At : Social History Observation Description Sex Assigned At Male Social History HIV Risk Assessment Social Info Question Answer Notes Additional Questions Is an HIV Risk Assessment being c onducted? Yes Have you been tested for HIV before? Yes Did you have a blood transfusion prior to 1985? No Do you have an unlicensed body piercing or tattoo? Yes Reproductive Life Plan: Social Info Question Answer Notes Reproductive Life Plan: Do you want to h ave children? Not sure Human Trafficking: Social Info Question Answer Notes Human Trafficking Experienced: No Sexual History: Social Info Question Answer Notes Sexual History: Sexual History Reviewed: Partner s, Practices, Protection/Past STIs, Prevention of Currently sexually active? Yes Sexually active with: Men Number of male partners 1 Your sexual activities include: anal intercourse, oral intercourse receptive Reviewed types of EC? No Do you use condoms? Yes Condoms are used: most of the time Date of last unprotected intercourse: 09/20/2024 Number of partners in past 3 months: 4 Number of partners in past year: 8 What is the client's primary method to prevent at the end of their visit? Condoms - Male Does your partner(s) currently have any STIs? No Counseling Provided: Social Info Question Answer Notes Counseling Provided Please indicate the length of time, in minutes, that counseling was provided. 7 Counseling Was Provided By: sonia Drugs/Alcohol: Social Info Question Answer Notes Drug/Alcohol Use Do you or have you used drugs? Yes, c urrently By what route are you taking drugs? Please check all that apply: Smoking Which drug(s) do you smoke? Marijuana Do you or have you used alcohol? Yes, currently Food Access: Social Info Question Answer Notes Food Access The Client's current access to food is Secure Food Access Relationships: Social Info Question Answer Notes Relationships Has the client exper ienced any of the following: Client has never experienced harmful relationships Housing Social Info Question Answer Notes Housing The client's current living situation is: stable housing Tobacco Use: Social Info Question Answer Notes Tobacco Use: Do you/have you used tobacco? 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 Encounters Encounter Location Date Provider Diagnosis [address] [id number] 09/27/2024 SAMANTHA TIDWELL Encounter for screen ing for infections with a predominantly sexual mode of transmission Z11.3 ; Counseling, unspecified Z71.9 ; Other problems related to lifestyle Z72.89 ; HIV Screening Z11.4 and Other specified disorders of penis N48.[address] [id number] 09/27/2024 SAMANTHA TIDWELL Assessments Encounter Date Diagnosis [...] patient Ordering medication/ test/proced ures Established Patient: 34686 20 Minutes 09/27/2024 Counseling, unspecified (ICD-10 - Z71.9) Clt not in need of any refills on Truvada. Continue to use on-demand. Recommend fu every 3 months Spent 25 minutes doing the following: Chart Prep Obtaining/r eviewing history Counseling/ Coordinatio n of Care Documenting the visit Educating the patient Ordering medication/ test/proced ures Established Patient: 02136 20 Minutes 09/27/2024 Other problems related to lifestyle (ICD-10 - Z72.89) Spent 25 minutes doing the following: Chart Prep Obtaining/r eviewing history Counseling/ Coordinatio n of Care Documenting the visit Educating the patient Ordering medication/ test/proced ures Established Patient: 27592 20 Minutes 09/27/2024 HIV Screening (ICD-10 - Z11.4) Spent 25 minutes doing the following: Chart Prep Obtaining/r eviewing history Counseling/ Coordinatio n of Care Documenting the visit Educating the patient Ordering medication/ test/proced ures Established Patient: [id number] 20 Minutes 09/27/2024 Other specified disorders of [...] patient Ordering medication/ test/proced ures Established Patient: [id number] 20 Minutes Plan Of Treatment Next Appt Details Provider Name:SAMANTHA DANY, 01:15:00 PM, [address] [place] [address], [address], [place], [place], [phone], Insurance Providers Payer Name Payer Address Payer Phone Subscriber Number Group Number Insured Name Patient Relationship to Insured Coverage Start Date Coverage End Date [facility] [address] [place], [place] [id number] Van Londono Self - patient is the insured Medical (General) History Medical History History ICD Code Depression Hep B, not immune
--- OUTSIDE RECORDS SUMMARY | 2025-07-23 17:43 | XMS_ITS | Clinical Summary ---
Author Organization [facility] Address [address] [facility] [address] [place] [phone] Phone Care Team Providers Care [employer] Name Role Phone Pcp, Unknown Primary Care Provider Unavailabl e Allergies Active Allergy Reactions Criticality Noted Date Comments Penicillins Rash Low 10/03/2023 Medications desvenlafaxine succinate (PRISTIQ) 50 MG 24 hr tablet 08/03/2023 Active albuterol 90 mcg/actuation inhaler Inhale 2 puffs into the lungs every 6 (six) hours as needed for wheezing. Active predniSONE (DELTASONE) 20 MG tablet 3 tablets X 3 days, 2 tablets X 3 days , 1 tablet X 3 days 18 tablet 10/03/2023 Active Immunizations No known immunizations Social History Tobacco Use Types Packs/Day Years Used Date Smoking Tobacco: Never Smokeless Tobacco: Never Tobacco Cessation:Counseling Given: Not Answered Alcohol Use Standard Drinks/Week Comments Yes 0 (1 standard drink = 0.6 oz pur e alcohol) social Education Answer Date Recorded Are you interested in more education? Not on kody e 10/03/2023 Are you concerned about learning? Not on file 10/03/2023 No 10/03/2023 No 10/03/2023 Digital Access Answer Date Recorded No 10/03/2023 No 10/03/2023 Reliable internet access at home? Not on file 10/03/2023 Device with a working camera? Not on file Intimate Partner Violence Answer Date R ecorded Are you denied basic needs s uch as food, clothing, or medical care? No 10/17/2024 In the past 12 months have y ou been in a relationship with a person who hurts, threatens, or tries to control you? No 10/17/2024 Are you denied basic needs s uch as food, clothing, or medical care? No 10/17/2024 In the past 12 months have y ou been in a relationship with a person who hurts, threatens, or tries to control you? No 10/17/2024 Sex and Gender Information Value Date Recorded Sex Assigned at Male 10/17/2024 5:56 PM EST Legal Sex Male 1:58 PM EST Gender Identity Male 10/17/2024 5:56 PM EST Sexual Orientation Bisexual 10/17/2024 5: 56 PM EST Last Filed Vital Signs Vital Sign Reading Time Taken Comments Blood Pressure 132/84 10/17/2024 8:58 PM EST Pulse 78 10/17/2024 8:58 PM EST Temperature 36.6 C (97.9 F) 10/17/2024 8:58 PM EST Respiratory Rate 18 10/17/2024 8:58 PM EST Oxygen Saturation 98% 10/17/2024 8:58 PM EST Inhaled Oxygen Concentration - - Weight 77.1 kg (170 lb) 10/17/2024 5:52 PM EST Height 170.2 cm (5' 7 ) 10/17/2024 5:52 PM EST Body Mass Index 26.63 10/17/2024 5:52 PM EST Plan of Treatment Health Maintenance Due Date Last Done Comments Adult Td,Tdap Booster 1996 DEPRESSION SCREENING 2008 HEPATITIS C SCREENING 02/10/2014 HIV ONE-TIME SCREENING (18-6 5 YEARS) 02/10/2014 HEPATITIS A VACCINES (1 of 2 - Risk 2-dose series) 02/10/2015 INFLUENZA VACCINE (#1) 2025 COVID-19 VACCINE ( - 2024-2 6 season) 2025 SMOKING STATUS SCREENING (On ce After 26 Yrs) Completed 10/03/2023 HIB VACCINES Aged Out No longer eligi ble based on patient's age to complete this topic MENINGOCOCCAL VACCINES (ACWY) Aged Out No longer eligible based on patient's age to complete this topic MENINGOCOCCAL VACCINES (B) Aged Out N o longer eligible based on patient's age to complete this topic PNEUMOCOCCAL VACCINES (0-49 years) Aged Out No longer eligible based on patient's age to complete this topic Medical Devices Not on file Insurance [id number] [place], [place] [id number] [facility] [place] [facility] Care Teams T[employer] Relationship Specialty Start Date End Date Pcp, Unknown PCP - General 10/17/24 Additional Source Comments The information contained in this document represents components of the legal health record. It is not the complete legal health record.[facility]
== END 2025-07-23 14:30 | disposition home or self-care (01) ==
LOC: HO.HMCH 13:53
PROVIDERS: Visit Provider Physician Assistant
DX: J45.20 Mild intermittent asthma, uncomplicated (principal)